=== PATIENT | male | born 1935 | race Caucasian/White ===

== ENCOUNTER 2017-05-27 10:10 | Emergency (ER) | payer SELFPAY, BC, MEDICARE | END 2017-05-27 18:45 | disposition left against medical advice (07) | LOC: E/R 10:10 | DX: Z53.21 Procedure and treatment not carried out due to patient leaving prior to being seen by health care provider (principal) ==

== ENCOUNTER 2017-06-17 11:12 | Inpatient (IN) | payer MEDICARE, BC ==
[2017-06-17] MEDS: ALBUTEROL 0.5% (NEB) 2.5 MG/0.5 ML AMP INH (16:18)
[2017-06-17] MEDS: IPRATROPIUM (NEB) 0.5 MG/2.5 ML AMP INH (16:18)
[2017-06-17] MEDS: ACETAMINOPHEN 500 MG TAB PO (16:26)
[2017-06-17] MEDS: METHYLPREDNISOLONE 125 MG INJ IV (16:26)
[2017-06-17 16:30] LABS: ADD MAN DIFF? NO
[2017-06-17 16:34] LABS: BASOPHILS % 0.2 % (0.0-2.0); EOSINOPHILS % 0.1 % (0.0-7.0); HEMATOCRIT 36.9 % (42.0-52.0); HEMOGLOBIN 12.3 g/dl (14.0-18.0); LYMPHOCYTES # 0.7 10^3/ul (0.8-2.9); LYMPHOCYTES % 8.2 % (15.0-51.0); MEAN CORPUSCULAR HEMOGLOBIN 29.1 pg (29.0-33.0); MEAN CORPUSCULAR HGB CONC 33.3 g/dl (32.0-37.0); MEAN CORPUSCULAR VOLUME 87.2 fl (82.0-101.0); MEAN PLATELET VOLUME 12.3 fl (7.4-10.4); MONOCYTE # 0.9 10^3/ul (0.3-0.9); MONOCYTES % 10.7 % (0.0-11.0); NEUTROPHIL # 6.9 10^3/ul (1.6-7.5); NEUTROPHILS % 80.2 % (39.0-77.0); NUCLEATED RED BLOOD CELLS% 0.3 /100WBC (0.0-0.0); PLATELET COUNT 244 10^3/UL (140-415); RED BLOOD COUNT 4.23 10^6/ul (4.70-6.10)
[2017-06-17 16:34] LABS: WHITE BLOOD COUNT 8.6 10^3/ul (4.8-10.8)
[2017-06-17 16:57] LABS: INR 2.03; PROTIME 23.4 Sec (11.9-14.9); PT RATIO 1.8
[2017-06-17 16:58] LABS: PARTIAL THROMBOPLASTIN TIME 40.8 Sec (25.0-35.0)
[2017-06-17 17:02] LABS: ALANINE AMINOTRANSFERASE 44 IU/L (13-69); ALBUMIN 3.5 g/dl (3.3-4.9); ALBUMIN/GLOBULIN RATIO 1.09; ALKALINE PHOSPHATASE 70 IU/L (42-121); ANION GAP 18 (8-16); ASPARTATE AMINO TRANSFERASE 38 IU/L (15-46); BILIRUBIN,INDIRECT 0.5 mg/dl (0-1.1); BILIRUBIN,TOTAL 0.5 mg/dl (0.2-1.3); BLOOD UREA NITROGEN 29 mg/dl (7-20); CALCIUM 8.7 mg/dl (8.4-10.2); CARBON DIOXIDE 22 mmol/L (21-31); CHLORIDE 106 mmol/L (97-110); CREATINE KINASE 130 IU/L (23-200); CREATININE 1.21 mg/dl (0.61-1.24); GLUCOSE 110 mg/dl (70-220); POTASSIUM 4.3 mmol/L (3.5-5.1); SODIUM 142 mmol/L (135-144); TOTAL PROTEIN 6.7 g/dl (6.1-8.1)
[2017-06-17 17:13] LABS: B-TYPE NATRIURETIC PEPTIDE 3300 PG/ML (0-450); CK INDEX 1.6; TROPONIN-I 0.013 ng/ml (0.00-0.12)
[2017-06-17 17:14] LABS: CK-MB 2.11 ng/ml (0.0-2.4)
[2017-06-17] MEDS ORDERED: DOXYCYCLINE 100 MG in DEXTROSE 5% 250 ML IV (17:46)
[2017-06-17] MEDS ORDERED: ACETAMINOPHEN 325 MG TAB PO ×2 (18:00→20:00)
[2017-06-17] MEDS ORDERED: ONDANSETRON 4 MG INJ IV (18:00)
[2017-06-17] MEDS: CEFTRIAXONE 1 GM/50 ML (PMX) 50 ML IVPB (18:14)
[2017-06-17] MEDS: DOXYCYCLINE 100 MG in SOD CHLORIDE 0.9% 250 ML IV (19:55)
[2017-06-17] MEDS ORDERED: NACL 0.9% 3 ML SYG IV (20:00)
[2017-06-17] MEDS ORDERED: ALBUTEROL/IPRATROPIUM (NEB) 3 ML AMP HHN (20:30)
[2017-06-17] MEDS: ATORVASTATIN 40 MG TAB PO (23:39)
[2017-06-17] MEDS: METOPROLOL 50 MG TAB PO (23:40)
[2017-06-18] MEDS: SALMETEROL/FLUTICASONE 250/50 INHA INH ×3 (00:13→23:05)
[2017-06-18] MEDS: MIRTAZAPINE 15 MG TAB PO ×2 (00:13→21:36)
[2017-06-18] MEDS: RIVAROXABAN 20 MG TABLET PO (00:14)
[2017-06-18] MEDS: LEVOTHYROXINE 100 MCG TAB PO (06:50)
[2017-06-18] MEDS ORDERED: PENDING SANTYL ORDER FOR WOUND CARE XX (08:00)
[2017-06-18] MEDS: LAMOTRIGINE 25 MG PO (09:00)
[2017-06-18] MEDS: METHYLPREDNISOLONE 40 MG INJ IV ×3 (09:29→21:37)
[2017-06-18] MEDS: CEFTRIAXONE 1 GM/50 ML (PMX) 50 ML IVPB (09:31)
[2017-06-18] MEDS: METOPROLOL 50 MG TAB PO ×2 (09:32→21:37)
[2017-06-18] MEDS: AMLODIPINE 2.5 MG TAB PO (09:33)
[2017-06-18] MEDS: VALSARTAN 160 MG TAB PO (09:33)
[2017-06-18] MEDS: VENLAFAXINE (XR) 37.5 MG CAP PO (09:41)
[2017-06-18] MEDS: AZITHROMYCIN 250 MG TAB PO (09:42)
[2017-06-18] MEDS: FUROSEMIDE 20 MG TAB PO (09:42)
[2017-06-18] MEDS: ALBUTEROL/IPRATROPIUM (NEB) 3 ML AMP HHN ×4 (10:05→21:02)
[2017-06-18] MEDS: LAMOTRIGINE 25 MG TAB PO ×2 (13:26→21:36)
[2017-06-18 14:59] LABS: ADD MAN DIFF? NO
[2017-06-18 15:05] LABS: WHITE BLOOD COUNT 9.2 10^3/ul (4.8-10.8)
[2017-06-18 15:05] LABS: BASOPHILS % 0.1 % (0.0-2.0); HEMATOCRIT 37.5 % (42.0-52.0); HEMOGLOBIN 12.3 g/dl (14.0-18.0); LYMPHOCYTES # 0.7 10^3/ul (0.8-2.9); LYMPHOCYTES % 7.7 % (15.0-51.0); MEAN CORPUSCULAR HEMOGLOBIN 28.4 pg (29.0-33.0); MEAN CORPUSCULAR HGB CONC 32.8 g/dl (32.0-37.0); MEAN CORPUSCULAR VOLUME 86.6 fl (82.0-101.0); MEAN PLATELET VOLUME 12.2 fl (7.4-10.4); MONOCYTE # 0.4 10^3/ul (0.3-0.9); MONOCYTES % 3.8 % (0.0-11.0); NEUTROPHIL # 8.1 10^3/ul (1.6-7.5); NUCLEATED RED BLOOD CELLS% 0.2 /100WBC (0.0-0.0); PLATELET COUNT 260 10^3/UL (140-415); RED BLOOD COUNT 4.33 10^6/ul (4.70-6.10)
[2017-06-18 17:59] LABS: ADD UMIC YES; UR ASCORBIC ACID 40 mg/dL (NEGATIVE); UR BILIRUBIN (Dip) NEGATIVE (NEGATIVE); UR BLOOD (Dip) 3+ mg/dL (NEGATIVE); UR CLARITY CLOUDY (CLEAR); UR COLOR YELLOW (YELLOW); UR GLUCOSE (Dip) NEGATIVE (NEGATIVE); UR KETONES (Dip) NEGATIVE (NEGATIVE); UR LEUKOCYTE ESTERASE (Dip) NEGATIVE Leu/ul (NEGATIVE); UR NITRITE (Dip) NEGATIVE (NEGATIVE); UR RBC > 182 /HPF (0-5); UR SPECIFIC GRAVITY (Dip) 1.015 (1.003-1.030); UR TOTAL PROTEIN (Dip) NEGATIVE (NEGATIVE); UR UROBILINOGEN (Dip) NEGATIVE (NEGATIVE); UR WBC 111 /HPF (0-5)
[2017-06-18] MEDS: ATORVASTATIN 40 MG TAB PO (21:35)
[2017-06-19] MEDS: ALBUTEROL/IPRATROPIUM (NEB) 3 ML AMP HHN ×6 (01:00→21:22)
[2017-06-19] MEDS: LEVOTHYROXINE 100 MCG TAB PO (06:33)
[2017-06-19] MEDS: METHYLPREDNISOLONE 40 MG INJ IV ×3 (06:33→21:09)
[2017-06-19 09:06] LABS: ADD MAN DIFF? NO
[2017-06-19 09:12] LABS: BASOPHILS % 0.1 % (0.0-2.0); HEMATOCRIT 38.8 % (42.0-52.0); HEMOGLOBIN 12.6 g/dl (14.0-18.0); LYMPHOCYTES # 0.9 10^3/ul (0.8-2.9); LYMPHOCYTES % 6.4 % (15.0-51.0); MEAN CORPUSCULAR HEMOGLOBIN 28.4 pg (29.0-33.0); MEAN CORPUSCULAR HGB CONC 32.5 g/dl (32.0-37.0); MEAN CORPUSCULAR VOLUME 87.6 fl (82.0-101.0); MEAN PLATELET VOLUME 12.5 fl (7.4-10.4); MONOCYTE # 0.6 10^3/ul (0.3-0.9); MONOCYTES % 4.8 % (0.0-11.0); NEUTROPHIL # 11.8 10^3/ul (1.6-7.5); NUCLEATED RED BLOOD CELLS% 0.1 /100WBC (0.0-0.0); PLATELET COUNT 272 10^3/UL (140-415); RED BLOOD COUNT 4.43 10^6/ul (4.70-6.10); RED CELL DISTRIBUTION WIDTH 16.1 % (11.5-14.5)
[2017-06-19 09:12] LABS: WHITE BLOOD COUNT 13.4 10^3/ul (4.8-10.8)
[2017-06-19] MEDS: SALMETEROL/FLUTICASONE 250/50 INHA INH ×2 (09:30→21:08)
[2017-06-19] MEDS: LAMOTRIGINE 25 MG TAB PO ×2 (09:31→21:08)
[2017-06-19] MEDS: METOPROLOL 50 MG TAB PO ×2 (09:31→21:09)
[2017-06-19] MEDS: AZITHROMYCIN 250 MG TAB PO (09:32)
[2017-06-19] MEDS: FUROSEMIDE 20 MG TAB PO (09:32)
[2017-06-19] MEDS: VALSARTAN 160 MG TAB PO (09:32)
[2017-06-19] MEDS: AMLODIPINE 2.5 MG TAB PO (09:32)
[2017-06-19 09:38] LABS: ALANINE AMINOTRANSFERASE 37 IU/L (13-69); ALBUMIN 3.8 g/dl (3.3-4.9); ALBUMIN/GLOBULIN RATIO 1.18; ALKALINE PHOSPHATASE 73 IU/L (42-121); ANION GAP 17 (8-16); ASPARTATE AMINO TRANSFERASE 41 IU/L (15-46); BILIRUBIN,INDIRECT 0.2 mg/dl (0-1.1); BILIRUBIN,TOTAL 0.2 mg/dl (0.2-1.3); BLOOD UREA NITROGEN 31 mg/dl (7-20); CALCIUM 9.4 mg/dl (8.4-10.2); CARBON DIOXIDE 27 mmol/L (21-31); CHLORIDE 107 mmol/L (97-110); CREATININE 1.12 mg/dl (0.61-1.24); GLUCOSE 124 mg/dl (70-220); MAGNESIUM 2.2 mg/dl (1.7-2.5); POTASSIUM 4.7 mmol/L (3.5-5.1); SODIUM 146 mmol/L (135-144)
[2017-06-19] MEDS: CEFTRIAXONE 1 GM/50 ML (PMX) 50 ML IVPB (09:40)
[2017-06-19] MEDS: RIVAROXABAN 15 MG TABLET PO (10:00)
[2017-06-19] MEDS: VENLAFAXINE (XR) 37.5 MG CAP PO (13:15)
[2017-06-19] MEDS: COLLAGENASE 30 GM TUBE TOP (13:16)
[2017-06-19 17:04] LABS: PROSTATE SPECIFIC ANTIGEN 6.1 ng/ml (0.0-4.0)
[2017-06-19] MEDS: ATORVASTATIN 40 MG TAB PO (21:08)
[2017-06-19] MEDS: MIRTAZAPINE 15 MG TAB PO (21:08)
[2017-06-20] MEDS: ALBUTEROL/IPRATROPIUM (NEB) 3 ML AMP HHN ×6 (00:59→20:08)
[2017-06-20] MEDS: LEVOTHYROXINE 100 MCG TAB PO (06:30)
[2017-06-20] MEDS: METHYLPREDNISOLONE 40 MG INJ IV ×2 (06:30→21:42)
[2017-06-20 08:57] LABS: ADD MAN DIFF? NO
[2017-06-20 08:58] LABS: WHITE BLOOD COUNT 14.9 10^3/ul (4.8-10.8)
[2017-06-20 08:58] LABS: BASOPHILS % 0.1 % (0.0-2.0); HEMATOCRIT 37.1 % (42.0-52.0); HEMOGLOBIN 12.3 g/dl (14.0-18.0); LYMPHOCYTES # 1.1 10^3/ul (0.8-2.9); LYMPHOCYTES % 7.6 % (15.0-51.0); MEAN CORPUSCULAR HEMOGLOBIN 28.9 pg (29.0-33.0); MEAN CORPUSCULAR HGB CONC 33.2 g/dl (32.0-37.0); MEAN CORPUSCULAR VOLUME 87.3 fl (82.0-101.0); MEAN PLATELET VOLUME 11.8 fl (7.4-10.4); MONOCYTE # 0.8 10^3/ul (0.3-0.9); MONOCYTES % 5.2 % (0.0-11.0); NEUTROPHIL # 12.8 10^3/ul (1.6-7.5); NEUTROPHILS % 86.1 % (39.0-77.0); NUCLEATED RED BLOOD CELLS% 0.2 /100WBC (0.0-0.0); PLATELET COUNT 283 10^3/UL (140-415); POSITIVE DIFF @See below; RED BLOOD COUNT 4.25 10^6/ul (4.70-6.10); RED CELL DISTRIBUTION WIDTH 16.1 % (11.5-14.5)
[2017-06-20 09:33] LABS: INR 1.44; PROTIME 17.8 Sec (11.9-14.9); PT RATIO 1.4
[2017-06-20 09:36] LABS: ALANINE AMINOTRANSFERASE 57 IU/L (13-69); ALBUMIN 3.6 g/dl (3.3-4.9); ALBUMIN/GLOBULIN RATIO 1.05; ALKALINE PHOSPHATASE 83 IU/L (42-121); ANION GAP 15 (8-16); ASPARTATE AMINO TRANSFERASE 54 IU/L (15-46); BILIRUBIN,INDIRECT 0.3 mg/dl (0-1.1); BILIRUBIN,TOTAL 0.3 mg/dl (0.2-1.3); BLOOD UREA NITROGEN 36 mg/dl (7-20); CALCIUM 9.5 mg/dl (8.4-10.2); CARBON DIOXIDE 28 mmol/L (21-31); CHLORIDE 107 mmol/L (97-110); CREATININE 1.19 mg/dl (0.61-1.24); GLUCOSE 114 mg/dl (70-220); POTASSIUM 4.1 mmol/L (3.5-5.1); SODIUM 146 mmol/L (135-144)
[2017-06-20] MEDS: CEFTRIAXONE 1 GM/50 ML (PMX) 50 ML IVPB (09:42)
[2017-06-20] MEDS: SALMETEROL/FLUTICASONE 250/50 INHA INH ×2 (09:42→20:18)
[2017-06-20] MEDS: VALSARTAN 160 MG TAB PO (09:43)
[2017-06-20] MEDS: VENLAFAXINE (XR) 37.5 MG CAP PO (09:43)
[2017-06-20] MEDS: AZITHROMYCIN 250 MG TAB PO (09:43)
[2017-06-20] MEDS: METOPROLOL 50 MG TAB PO ×2 (09:43→20:19)
[2017-06-20] MEDS: FUROSEMIDE 20 MG TAB PO (09:43)
[2017-06-20] MEDS: AMLODIPINE 2.5 MG TAB PO (09:44)
[2017-06-20] MEDS: LAMOTRIGINE 25 MG TAB PO ×2 (09:44→20:18)
[2017-06-20] MEDS: COLLAGENASE 30 GM TUBE TOP (09:47)
[2017-06-20 12:57] LABS: ADD UMIC YES; UR ASCORBIC ACID NEGATIVE (NEGATIVE); UR BILIRUBIN (Dip) NEGATIVE (NEGATIVE); UR BLOOD (Dip) 2+ mg/dL (NEGATIVE); UR CLARITY CLEAR (CLEAR); UR COLOR YELLOW (YELLOW); UR GLUCOSE (Dip) NEGATIVE (NEGATIVE); UR KETONES (Dip) NEGATIVE (NEGATIVE); UR LEUKOCYTE ESTERASE (Dip) NEGATIVE Leu/ul (NEGATIVE); UR NITRITE (Dip) NEGATIVE (NEGATIVE); UR RBC 85 /HPF (0-5); UR SPECIFIC GRAVITY (Dip) 1.018 (1.003-1.030); UR TOTAL PROTEIN (Dip) NEGATIVE (NEGATIVE); UR UROBILINOGEN (Dip) NEGATIVE (NEGATIVE); UR WBC 2 /HPF (0-5)
[2017-06-20] MEDS: MIRTAZAPINE 15 MG TAB PO (20:18)
[2017-06-20] MEDS: ATORVASTATIN 40 MG TAB PO (20:18)
[2017-06-21] MEDS: ALBUTEROL/IPRATROPIUM (NEB) 3 ML AMP HHN ×6 (00:34→20:17)
[2017-06-21] MEDS: LEVOTHYROXINE 100 MCG TAB PO (05:56)
[2017-06-21 08:28] LABS: ADD MAN DIFF? NO
[2017-06-21 08:33] LABS: WHITE BLOOD COUNT 13.5 10^3/ul (4.8-10.8)
[2017-06-21 08:33] LABS: BASOPHILS % 0.1 % (0.0-2.0); HEMATOCRIT 37.2 % (42.0-52.0); HEMOGLOBIN 12.7 g/dl (14.0-18.0); LYMPHOCYTES # 1.1 10^3/ul (0.8-2.9); LYMPHOCYTES % 7.9 % (15.0-51.0); MEAN CORPUSCULAR HGB CONC 34.1 g/dl (32.0-37.0); MEAN CORPUSCULAR VOLUME 84.9 fl (82.0-101.0); MEAN PLATELET VOLUME 11.6 fl (7.4-10.4); MONOCYTE # 0.9 10^3/ul (0.3-0.9); MONOCYTES % 6.7 % (0.0-11.0); NEUTROPHIL # 11.2 10^3/ul (1.6-7.5); NEUTROPHILS % 83.1 % (39.0-77.0); PLATELET COUNT 293 10^3/UL (140-415); RED BLOOD COUNT 4.38 10^6/ul (4.70-6.10); RED CELL DISTRIBUTION WIDTH 15.7 % (11.5-14.5)
[2017-06-21 08:51] LABS: ANION GAP 15 (8-16); BLOOD UREA NITROGEN 35 mg/dl (7-20); CALCIUM 9.3 mg/dl (8.4-10.2); CARBON DIOXIDE 28 mmol/L (21-31); CHLORIDE 106 mmol/L (97-110); CREATININE 1.04 mg/dl (0.61-1.24); GLUCOSE 119 mg/dl (70-220); POTASSIUM 4.3 mmol/L (3.5-5.1); SODIUM 145 mmol/L (135-144)
[2017-06-21] MEDS: SALMETEROL/FLUTICASONE 250/50 INHA INH ×2 (09:37→21:07)
[2017-06-21] MEDS: METHYLPREDNISOLONE 40 MG INJ IV (09:37)
[2017-06-21] MEDS: VENLAFAXINE (XR) 37.5 MG CAP PO (09:38)
[2017-06-21] MEDS: AMLODIPINE 2.5 MG TAB PO ×2 (09:38→12:10)
[2017-06-21] MEDS: METOPROLOL 50 MG TAB PO ×2 (09:38→21:08)
[2017-06-21] MEDS: LAMOTRIGINE 25 MG TAB PO ×2 (09:39→21:08)
[2017-06-21] MEDS: FUROSEMIDE 20 MG TAB PO (09:39)
[2017-06-21] MEDS: COLLAGENASE 30 GM TUBE TOP (09:39)
[2017-06-21] MEDS: AZITHROMYCIN 250 MG TAB PO (09:39)
[2017-06-21] MEDS: VALSARTAN 160 MG TAB PO (09:39)
[2017-06-21] MEDS: CEFTRIAXONE 1 GM/50 ML (PMX) 50 ML IVPB (09:40)
[2017-06-21] MEDS: MIRTAZAPINE 15 MG TAB PO (21:07)
[2017-06-21] MEDS: ATORVASTATIN 40 MG TAB PO (21:08)
[2017-06-22] MEDS: ALBUTEROL/IPRATROPIUM (NEB) 3 ML AMP HHN ×6 (00:21→20:38)
[2017-06-22] MEDS: LEVOTHYROXINE 100 MCG TAB PO (05:58)
[2017-06-22] MEDS: SALMETEROL/FLUTICASONE 250/50 INHA INH ×2 (08:07→22:45)
[2017-06-22] MEDS: VALSARTAN 160 MG TAB PO (08:09)
[2017-06-22] MEDS: METHYLPREDNISOLONE 40 MG INJ IV (08:10)
[2017-06-22] MEDS: AMLODIPINE 5 MG TAB PO ×2 (08:11→10:30)
[2017-06-22] MEDS: METOPROLOL 50 MG TAB PO ×2 (08:12→22:44)
[2017-06-22] MEDS: LAMOTRIGINE 25 MG TAB PO ×2 (08:12→22:45)
[2017-06-22] MEDS: FUROSEMIDE 20 MG TAB PO (08:12)
[2017-06-22] MEDS: VENLAFAXINE (XR) 37.5 MG CAP PO (08:12)
[2017-06-22] MEDS: COLLAGENASE 30 GM TUBE TOP (08:12)
[2017-06-22] MEDS ORDERED: SUCCINYLCHOLINE CHLORIDE 100 MG/5 ML SYG IV (18:40)
[2017-06-22] MEDS ORDERED: ROCURONIUM 50 MG INJ (18:40)
[2017-06-22] MEDS ORDERED: GLYCOPYRROLATE 0.4 MG INJ ×3 (18:40→19:14)
[2017-06-22] MEDS ORDERED: NEOSTIGMINE 3 MG/3 ML SYRINGE ×2 (18:40→19:14)
[2017-06-22] MEDS ORDERED: PROPOFOL 20 ML (18:40)
[2017-06-22] MEDS ORDERED: LIDOCAINE 2% (SDV) 5 ML INJ (18:40)
[2017-06-22] MEDS ORDERED: OXYCODONE/ACETAMINOPHEN (5/325) TAB PO ×2 (19:00)
[2017-06-22] MEDS ORDERED: MEPERIDINE 25 MG INJ IV (19:00)
[2017-06-22] MEDS ORDERED: ONDANSETRON 4 MG INJ IV (19:00)
[2017-06-22] MEDS ORDERED: hydrALAzine 20 MG INJ IV (19:00)
[2017-06-22] MEDS ORDERED: CEFAZOLIN 1 GM INJ (19:00)
[2017-06-22] MEDS ORDERED: DIPHENHYDRAMINE 50 MG INJ IV (19:00)
[2017-06-22] MEDS ORDERED: MIDAZOLAM 1 MG/ML 2 ML INJ IV (19:00)
[2017-06-22] MEDS ORDERED: LABETALOL HCL 20MG INJ IV (19:00)
[2017-06-22] MEDS ORDERED: EPHEDrine SULFATE 50 MG/5 ML SYG IV (19:00)
[2017-06-22] MEDS ORDERED: METOCLOPRAMIDE 10 MG INJ IV (19:00)
[2017-06-22] MEDS ORDERED: FENTAnyl 50 MCG/ML VIAL IV ×2 (19:00)
[2017-06-22] MEDS ORDERED: EPHEDrine SULFATE 50 MG/5 ML SYG (19:35)
[2017-06-22] MEDS: FENTAnyl 50 MCG/ML VIAL IV (20:28)
[2017-06-22] MEDS ORDERED: AMLODIPINE 5 MG TAB PO (21:00)
[2017-06-22] MEDS: ATORVASTATIN 40 MG TAB PO (22:43)
[2017-06-22] MEDS: MIRTAZAPINE 15 MG TAB PO (22:45)
[2017-06-23] MEDS: ALBUTEROL/IPRATROPIUM (NEB) 3 ML AMP HHN ×6 (01:00→20:19)
[2017-06-23] MEDS: LEVOTHYROXINE 100 MCG TAB PO (06:15)
[2017-06-23] MEDS: LAMOTRIGINE 25 MG TAB PO ×2 (08:03→21:06)
[2017-06-23] MEDS: SALMETEROL/FLUTICASONE 250/50 INHA INH ×2 (08:03→21:05)
[2017-06-23] MEDS: AMLODIPINE 10 MG TAB PO (08:04)
[2017-06-23] MEDS: FUROSEMIDE 20 MG TAB PO (08:04)
[2017-06-23] MEDS: COLLAGENASE 30 GM TUBE TOP (08:04)
[2017-06-23] MEDS: VALSARTAN 160 MG TAB PO ×2 (08:04→09:41)
[2017-06-23] MEDS: METOPROLOL 50 MG TAB PO ×2 (08:04→21:06)
[2017-06-23] MEDS: VENLAFAXINE (XR) 37.5 MG CAP PO (08:04)
[2017-06-23] MEDS: METHYLPREDNISOLONE 40 MG INJ IV (09:42)
[2017-06-23] MEDS: ATORVASTATIN 40 MG TAB PO (21:05)
[2017-06-23] MEDS: MIRTAZAPINE 15 MG TAB PO (21:05)
[2017-06-24] MEDS: ALBUTEROL/IPRATROPIUM (NEB) 3 ML AMP HHN ×4 (01:00→13:00)
[2017-06-24] MEDS: LEVOTHYROXINE 100 MCG TAB PO (06:21)
[2017-06-24 08:43] LABS: ADD MAN DIFF? NO
[2017-06-24] MEDS: METOPROLOL 50 MG TAB PO (08:49)
[2017-06-24] MEDS: SALMETEROL/FLUTICASONE 250/50 INHA INH (08:49)
[2017-06-24] MEDS: VENLAFAXINE (XR) 37.5 MG CAP PO (08:49)
[2017-06-24 08:50] LABS: BASOPHILS % 0.2 % (0.0-2.0); EOSINOPHILS # 0.1 10^3/ul (0.0-0.5); EOSINOPHILS % 0.7 % (0.0-7.0); HEMATOCRIT 38.4 % (42.0-52.0); HEMOGLOBIN 12.8 g/dl (14.0-18.0); LYMPHOCYTES # 1.3 10^3/ul (0.8-2.9); LYMPHOCYTES % 10.4 % (15.0-51.0); MEAN CORPUSCULAR HEMOGLOBIN 28.3 pg (29.0-33.0); MEAN CORPUSCULAR HGB CONC 33.3 g/dl (32.0-37.0); MEAN PLATELET VOLUME 11.5 fl (7.4-10.4); MONOCYTE # 1.1 10^3/ul (0.3-0.9); MONOCYTES % 8.8 % (0.0-11.0); NEUTROPHIL # 9.3 10^3/ul (1.6-7.5); NEUTROPHILS % 76.7 % (39.0-77.0); PLATELET COUNT 311 10^3/UL (140-415); RED BLOOD COUNT 4.52 10^6/ul (4.70-6.10); RED CELL DISTRIBUTION WIDTH 15.4 % (11.5-14.5)
[2017-06-24 08:50] LABS: WHITE BLOOD COUNT 12.1 10^3/ul (4.8-10.8)
[2017-06-24] MEDS: COLLAGENASE 30 GM TUBE TOP (08:50)
[2017-06-24] MEDS: AMLODIPINE 10 MG TAB PO (08:50)
[2017-06-24] MEDS: LAMOTRIGINE 25 MG TAB PO (08:50)
[2017-06-24] MEDS: FUROSEMIDE 20 MG TAB PO (08:50)
[2017-06-24] MEDS: VALSARTAN 160 MG TAB PO (08:59)
[2017-06-24 09:10] LABS: ALANINE AMINOTRANSFERASE 71 IU/L (13-69); ALBUMIN 3.5 g/dl (3.3-4.9); ALBUMIN/GLOBULIN RATIO 1.25; ALKALINE PHOSPHATASE 70 IU/L (42-121); ANION GAP 13 (8-16); ASPARTATE AMINO TRANSFERASE 28 IU/L (15-46); BILIRUBIN,INDIRECT 0.5 mg/dl (0-1.1); BILIRUBIN,TOTAL 0.5 mg/dl (0.2-1.3); BLOOD UREA NITROGEN 27 mg/dl (7-20); CALCIUM 9.1 mg/dl (8.4-10.2); CARBON DIOXIDE 30 mmol/L (21-31); CHLORIDE 102 mmol/L (97-110); CREATININE 1.03 mg/dl (0.61-1.24); GLUCOSE 98 mg/dl (70-220); MAGNESIUM 2.3 mg/dl (1.7-2.5); PHOSPHORUS 3.3 mg/dl (2.5-4.9); POTASSIUM 3.8 mmol/L (3.5-5.1); SODIUM 141 mmol/L (135-144); TOTAL PROTEIN 6.3 g/dl (6.1-8.1)
== END 2017-06-24 13:33 | DRG 190 ==
LOC: MS4 22:44 → E/R 11:12 → MS4 17:46
PROC: 0T9B80Z Drainage of Bladder with Drainage Device, Via Natural or Artificial Opening Endoscopic (ICD-10-PCS; principal; 2017-06-22 18:41)
DX: J44.1 Chronic obstructive pulmonary disease with (acute) exacerbation (principal); L89.323 Pressure ulcer of left buttock, stage 3; L89.313 Pressure ulcer of right buttock, stage 3; J45.901 Unspecified asthma with (acute) exacerbation; N13.8 Other obstructive and reflux uropathy; J98.11 Atelectasis; N40.1 Benign prostatic hyperplasia with lower urinary tract symptoms; N32.89 Other specified disorders of bladder; I48.2 Chronic atrial fibrillation; R31.0 Gross hematuria; E03.9 Hypothyroidism, unspecified; E78.5 Hyperlipidemia, unspecified; F32.9 Major depressive disorder, single episode, unspecified; I25.10 Atherosclerotic heart disease of native coronary artery without angina pectoris; I10 Essential (primary) hypertension; R55 Syncope and collapse; I25.2 Old myocardial infarction; Z87.891 Personal history of nicotine dependence; Z95.5 Presence of coronary angioplasty implant and graft; Z79.02 Long term (current) use of antithrombotics/antiplatelets
CPT/HCPCS: 71045; 74176; 80048; 80053; 81001; 82550; 82553; 83735; 83880; 84100; 84153; 84154; 84484; 85025; 85610; 85730; 87040; 87081; 87086; 88104; 93005; 94640; 94644; 96374; 96375; 97110; 97116; 97161; 97530; 99285-25

== ENCOUNTER 2017-06-24 13:35 | Inpatient (IN) | payer MEDICARE, BC ==
[2017-06-24] MEDS ORDERED: PENDING SANTYL ORDER FOR WOUND CARE XX (14:30)
[2017-06-24] MEDS ORDERED: ALBUTEROL/IPRATROPIUM (NEB) 3 ML AMP HHN ×2 (14:53→15:30)
[2017-06-24] MEDS ORDERED: NACL 0.9% 3 ML SYG IV (14:53)
[2017-06-24] MEDS ORDERED: ACETAMINOPHEN 325 MG TAB PO (14:53)
[2017-06-24] MEDS ORDERED: VALSARTAN 160 MG TAB PO (14:53)
[2017-06-24] MEDS ORDERED: LACTULOSE 30ML CUP PO (15:08)
[2017-06-24] MEDS ORDERED: BISACODYL 10 MG SUPP PR (15:30)
[2017-06-24 18:15] LABS: ADD UMIC YES; UR ASCORBIC ACID NEGATIVE (NEGATIVE); UR BILIRUBIN (Dip) NEGATIVE (NEGATIVE); UR BLOOD (Dip) 3+ mg/dL (NEGATIVE); UR CLARITY CLOUDY (CLEAR); UR COLOR AMBER (YELLOW); UR GLUCOSE (Dip) 1+ mg/dL (NEGATIVE); UR KETONES (Dip) NEGATIVE (NEGATIVE); UR LEUKOCYTE ESTERASE (Dip) 2+ Leu/ul (NEGATIVE); UR MUCUS MANY /HPF (NONE SEEN); UR NITRITE (Dip) NEGATIVE (NEGATIVE); UR RBC > 182 /HPF (0-5); UR SPECIFIC GRAVITY (Dip) 1.017 (1.003-1.030); UR SQUAMOUS EPITHELIAL CELL FEW /HPF (FEW); UR TOTAL PROTEIN (Dip) 2+ mg/dl (NEGATIVE); UR UROBILINOGEN (Dip) NEGATIVE (NEGATIVE); UR WBC 71 /HPF (0-5)
[2017-06-24] MEDS: SALMETEROL/FLUTICASONE 250/50 INHA INH (21:10)
[2017-06-24] MEDS: DOCUSATE SODIUM 100 MG CAP PO (21:11)
[2017-06-24] MEDS: SENNA TAB PO (21:11)
[2017-06-24] MEDS: ATORVASTATIN 40 MG TAB PO (21:11)
[2017-06-24] MEDS: LAMOTRIGINE 25 MG TAB PO (21:12)
[2017-06-24] MEDS: MIRTAZAPINE 15 MG TAB PO (21:13)
[2017-06-24] MEDS: METOPROLOL 50 MG TAB PO (21:14)
[2017-06-25] MEDS: LEVOTHYROXINE 100 MCG TAB PO (06:40)
[2017-06-25] MEDS: COLLAGENASE 30 GM TUBE TOP (09:00)
[2017-06-25] MEDS: MULTIVITAMINS THERAPEUTIC TAB PO (09:00)
[2017-06-25 09:34] LABS: ADD MAN DIFF? NO
[2017-06-25 09:39] LABS: BASOPHIL # 0.1 10^3/ul (0.0-0.1); BASOPHILS % 0.5 % (0.0-2.0); EOSINOPHILS # 0.2 10^3/ul (0.0-0.5); EOSINOPHILS % 1.3 % (0.0-7.0); HEMATOCRIT 44.5 % (42.0-52.0); HEMOGLOBIN 14.9 g/dl (14.0-18.0); LYMPHOCYTES # 2.3 10^3/ul (0.8-2.9); LYMPHOCYTES % 15.3 % (15.0-51.0); MEAN CORPUSCULAR HEMOGLOBIN 29.3 pg (29.0-33.0); MEAN CORPUSCULAR HGB CONC 33.5 g/dl (32.0-37.0); MEAN CORPUSCULAR VOLUME 87.4 fl (82.0-101.0); MEAN PLATELET VOLUME 11.4 fl (7.4-10.4); MONOCYTE # 1.1 10^3/ul (0.3-0.9); MONOCYTES % 7.7 % (0.0-11.0); NEUTROPHIL # 10.5 10^3/ul (1.6-7.5); NEUTROPHILS % 70.5 % (39.0-77.0); PLATELET COUNT 356 10^3/UL (140-415); RED BLOOD COUNT 5.09 10^6/ul (4.70-6.10); RED CELL DISTRIBUTION WIDTH 15.6 % (11.5-14.5)
[2017-06-25 09:39] LABS: WHITE BLOOD COUNT 14.9 10^3/ul (4.8-10.8)
[2017-06-25 09:59] LABS: ALBUMIN 3.8 g/dl (3.3-4.9); ALBUMIN/GLOBULIN RATIO 1.15; ALKALINE PHOSPHATASE 80 IU/L (42-121); ANION GAP 17 (8-16); ASPARTATE AMINO TRANSFERASE 48 IU/L (15-46); BILIRUBIN,INDIRECT 0.6 mg/dl (0-1.1); BILIRUBIN,TOTAL 0.6 mg/dl (0.2-1.3); BLOOD UREA NITROGEN 39 mg/dl (7-20); CALCIUM 9.2 mg/dl (8.4-10.2); CARBON DIOXIDE 30 mmol/L (21-31); CHLORIDE 101 mmol/L (97-110); CREATININE 1.46 mg/dl (0.61-1.24); GLUCOSE 116 mg/dl (70-220); POTASSIUM 4.7 mmol/L (3.5-5.1); SODIUM 143 mmol/L (135-144); TOTAL PROTEIN 7.1 g/dl (6.1-8.1)
[2017-06-25] MEDS: DOCUSATE SODIUM 100 MG CAP PO ×2 (10:10→21:18)
[2017-06-25] MEDS: ZINC SULFATE 220 MG CAP PO (10:10)
[2017-06-25] MEDS: SALMETEROL/FLUTICASONE 250/50 INHA INH ×2 (10:10→21:18)
[2017-06-25] MEDS: ASCORBIC ACID 500 MG TAB PO (10:10)
[2017-06-25] MEDS: FUROSEMIDE 20 MG TAB PO (10:11)
[2017-06-25] MEDS: METOPROLOL 50 MG TAB PO ×2 (10:12→21:20)
[2017-06-25] MEDS: AMLODIPINE 5 MG TAB PO (10:13)
[2017-06-25] MEDS: VENLAFAXINE (XR) 37.5 MG CAP PO (10:13)
[2017-06-25] MEDS: LAMOTRIGINE 25 MG TAB PO ×2 (10:13→21:20)
[2017-06-25 10:17] LABS: ALANINE AMINOTRANSFERASE 90 IU/L (13-69)
[2017-06-25] MEDS: ALBUTEROL/IPRATROPIUM (NEB) 3 ML AMP HHN ×3 (13:56→20:08)
[2017-06-25] MEDS: RIVAROXABAN 15 MG TABLET PO (18:36)
[2017-06-25] MEDS: SENNA TAB PO (21:00)
[2017-06-25] MEDS: ATORVASTATIN 40 MG TAB PO (21:20)
[2017-06-25] MEDS: MIRTAZAPINE 15 MG TAB PO (21:20)
[2017-06-26] MEDS: ALBUTEROL/IPRATROPIUM (NEB) 3 ML AMP HHN ×6 (01:00→20:21)
[2017-06-26] MEDS: LEVOTHYROXINE 100 MCG TAB PO (06:44)
[2017-06-26] MEDS: VALSARTAN 160 MG TAB PO (09:00)
[2017-06-26] MEDS: SALMETEROL/FLUTICASONE 250/50 INHA INH ×2 (09:38→21:23)
[2017-06-26] MEDS: FUROSEMIDE 20 MG TAB PO (09:42)
[2017-06-26] MEDS: ASCORBIC ACID 500 MG TAB PO (09:42)
[2017-06-26] MEDS: VENLAFAXINE (XR) 37.5 MG CAP PO (09:42)
[2017-06-26] MEDS: MULTIVITAMINS THERAPEUTIC TAB PO (09:42)
[2017-06-26] MEDS: DOCUSATE SODIUM 100 MG CAP PO ×2 (09:42→21:21)
[2017-06-26] MEDS: LAMOTRIGINE 25 MG TAB PO ×2 (09:45→21:22)
[2017-06-26] MEDS: ZINC SULFATE 220 MG CAP PO (09:46)
[2017-06-26] MEDS: METOPROLOL 50 MG TAB PO ×2 (09:56→21:00)
[2017-06-26] MEDS: COLLAGENASE 30 GM TUBE TOP (09:59)
[2017-06-26] MEDS: AMLODIPINE 5 MG TAB PO (11:00)
[2017-06-26] MEDS: RIVAROXABAN 15 MG TABLET PO (17:54)
[2017-06-26] MEDS: MIRTAZAPINE 15 MG TAB PO (21:22)
[2017-06-26] MEDS: ATORVASTATIN 40 MG TAB PO (21:22)
[2017-06-26] MEDS: SENNA TAB PO (21:22)
[2017-06-27] MEDS: ALBUTEROL/IPRATROPIUM (NEB) 3 ML AMP HHN ×6 (01:00→20:26)
[2017-06-27] MEDS: LEVOTHYROXINE 100 MCG TAB PO (06:40)
[2017-06-27] MEDS: ASCORBIC ACID 500 MG TAB PO (08:17)
[2017-06-27] MEDS: SALMETEROL/FLUTICASONE 250/50 INHA INH ×2 (08:17→20:43)
[2017-06-27] MEDS: ZINC SULFATE 220 MG CAP PO (08:17)
[2017-06-27] MEDS: VENLAFAXINE (XR) 37.5 MG CAP PO (08:17)
[2017-06-27] MEDS: MULTIVITAMINS THERAPEUTIC TAB PO (08:18)
[2017-06-27] MEDS: DOCUSATE SODIUM 100 MG CAP PO ×2 (08:18→20:40)
[2017-06-27] MEDS: LAMOTRIGINE 25 MG TAB PO ×2 (08:18→20:40)
[2017-06-27] MEDS: METOPROLOL 50 MG TAB PO ×2 (08:21→20:41)
[2017-06-27] MEDS: FUROSEMIDE 20 MG TAB PO (08:21)
[2017-06-27] MEDS: VALSARTAN 160 MG TAB PO (08:22)
[2017-06-27] MEDS: COLLAGENASE 30 GM TUBE TOP (09:00)
[2017-06-27 11:00] LABS: ADD MAN DIFF? NO
[2017-06-27 11:04] LABS: WHITE BLOOD COUNT 13.9 10^3/ul (4.8-10.8)
[2017-06-27 11:04] LABS: BASOPHILS % 0.1 % (0.0-2.0); EOSINOPHILS # 0.1 10^3/ul (0.0-0.5); EOSINOPHILS % 0.6 % (0.0-7.0); HEMATOCRIT 41.5 % (42.0-52.0); HEMOGLOBIN 13.8 g/dl (14.0-18.0); LYMPHOCYTES # 1.7 10^3/ul (0.8-2.9); LYMPHOCYTES % 12.4 % (15.0-51.0); MEAN CORPUSCULAR HEMOGLOBIN 28.9 pg (29.0-33.0); MEAN CORPUSCULAR HGB CONC 33.3 g/dl (32.0-37.0); MEAN CORPUSCULAR VOLUME 86.8 fl (82.0-101.0); MONOCYTE # 1.3 10^3/ul (0.3-0.9); MONOCYTES % 9.6 % (0.0-11.0); NEUTROPHIL # 10.3 10^3/ul (1.6-7.5); NEUTROPHILS % 74.1 % (39.0-77.0); PLATELET COUNT 301 10^3/UL (140-415); RED BLOOD COUNT 4.78 10^6/ul (4.70-6.10)
[2017-06-27 11:28] LABS: ANION GAP 20 (8-16); BLOOD UREA NITROGEN 41 mg/dl (7-20); CALCIUM 9.4 mg/dl (8.4-10.2); CARBON DIOXIDE 28 mmol/L (21-31); CHLORIDE 102 mmol/L (97-110); GLUCOSE 114 mg/dl (70-220); POTASSIUM 4.5 mmol/L (3.5-5.1); SODIUM 145 mmol/L (135-144)
[2017-06-27] MEDS: RIVAROXABAN 15 MG TABLET PO (17:52)
[2017-06-27] MEDS: SENNA TAB PO (20:40)
[2017-06-27] MEDS: MIRTAZAPINE 15 MG TAB PO (20:40)
[2017-06-27] MEDS: ATORVASTATIN 40 MG TAB PO (20:40)
[2017-06-28] MEDS: ALBUTEROL/IPRATROPIUM (NEB) 3 ML AMP HHN ×6 (00:21→21:00)
[2017-06-28] MEDS: LEVOTHYROXINE 100 MCG TAB PO (06:56)
[2017-06-28] MEDS: VENLAFAXINE (XR) 37.5 MG CAP PO (08:08)
[2017-06-28] MEDS: ASCORBIC ACID 500 MG TAB PO (08:09)
[2017-06-28] MEDS: METOPROLOL 50 MG TAB PO ×2 (08:09→20:34)
[2017-06-28] MEDS: DOCUSATE SODIUM 100 MG CAP PO ×2 (08:09→20:27)
[2017-06-28] MEDS: ZINC SULFATE 220 MG CAP PO (08:09)
[2017-06-28] MEDS: MULTIVITAMINS THERAPEUTIC TAB PO (08:09)
[2017-06-28] MEDS: LAMOTRIGINE 25 MG TAB PO ×2 (08:09→20:27)
[2017-06-28] MEDS: VALSARTAN 80 MG TAB PO (08:10)
[2017-06-28] MEDS: SALMETEROL/FLUTICASONE 250/50 INHA INH ×2 (08:10→20:28)
[2017-06-28] MEDS: RIVAROXABAN 15 MG TABLET PO (17:40)
[2017-06-28] MEDS: DEXTROSE 5%-0.9% NACL 1,000 ML IV (18:10)
[2017-06-28] MEDS: MAGNESIUM HYDROXIDE 30ML CUP PO (18:21)
[2017-06-28] MEDS: MIRTAZAPINE 15 MG TAB PO (20:27)
[2017-06-28] MEDS: SENNA TAB PO (20:27)
[2017-06-28] MEDS: ATORVASTATIN 40 MG TAB PO (20:27)
[2017-06-29] MEDS: ALBUTEROL/IPRATROPIUM (NEB) 3 ML AMP HHN ×6 (01:00→21:00)
[2017-06-29] MEDS: DEXTROSE 5%-0.9% NACL 1,000 ML IV (04:02)
[2017-06-29] MEDS: LEVOTHYROXINE 100 MCG TAB PO (06:19)
[2017-06-29 07:10] LABS: ADD MAN DIFF? NO
[2017-06-29 07:16] LABS: ABNORMAL IP MESSAGE 1; BASOPHILS % 0.1 % (0.0-2.0); EOSINOPHILS # 0.1 10^3/ul (0.0-0.5); EOSINOPHILS % 0.8 % (0.0-7.0); HEMATOCRIT 40.6 % (42.0-52.0); HEMOGLOBIN 13.2 g/dl (14.0-18.0); LYMPHOCYTES % 13.3 % (15.0-51.0); MEAN CORPUSCULAR HEMOGLOBIN 28.8 pg (29.0-33.0); MEAN CORPUSCULAR HGB CONC 32.5 g/dl (32.0-37.0); MEAN CORPUSCULAR VOLUME 88.5 fl (82.0-101.0); MEAN PLATELET VOLUME 12.1 fl (7.4-10.4); MONOCYTE # 1.6 10^3/ul (0.3-0.9); MONOCYTES % 10.3 % (0.0-11.0); NEUTROPHIL # 11.2 10^3/ul (1.6-7.5); NEUTROPHILS % 74.2 % (39.0-77.0); PLATELET COUNT 261 10^3/UL (140-415); POSITIVE DIFF @See below; RED BLOOD COUNT 4.59 10^6/ul (4.70-6.10); RED CELL DISTRIBUTION WIDTH 16.4 % (11.5-14.5)
[2017-06-29 07:16] LABS: WHITE BLOOD COUNT 15.1 10^3/ul (4.8-10.8)
[2017-06-29 07:48] LABS: ALANINE AMINOTRANSFERASE 86 IU/L (13-69); ALBUMIN 3.5 g/dl (3.3-4.9); ALBUMIN/GLOBULIN RATIO 1.29; ALKALINE PHOSPHATASE 79 IU/L (42-121); ANION GAP 16 (8-16); ASPARTATE AMINO TRANSFERASE 49 IU/L (15-46); BILIRUBIN,INDIRECT 0.3 mg/dl (0-1.1); BILIRUBIN,TOTAL 0.3 mg/dl (0.2-1.3); BLOOD UREA NITROGEN 28 mg/dl (7-20); CALCIUM 8.7 mg/dl (8.4-10.2); CARBON DIOXIDE 26 mmol/L (21-31); CHLORIDE 108 mmol/L (97-110); CREATININE 1.17 mg/dl (0.61-1.24); GLUCOSE 104 mg/dl (70-220); POTASSIUM 4.2 mmol/L (3.5-5.1); SODIUM 146 mmol/L (135-144); TOTAL PROTEIN 6.2 g/dl (6.1-8.1)
[2017-06-29] MEDS: ZINC SULFATE 220 MG CAP PO (08:50)
[2017-06-29] MEDS: LAMOTRIGINE 25 MG TAB PO ×2 (08:51→20:11)
[2017-06-29] MEDS: ASCORBIC ACID 500 MG TAB PO (08:53)
[2017-06-29] MEDS: DOCUSATE SODIUM 100 MG CAP PO ×2 (08:53→20:10)
[2017-06-29] MEDS: METOPROLOL 50 MG TAB PO ×2 (08:54→21:00)
[2017-06-29] MEDS: VALSARTAN 80 MG TAB PO (08:58)
[2017-06-29] MEDS: VENLAFAXINE (XR) 37.5 MG CAP PO (08:58)
[2017-06-29] MEDS: SALMETEROL/FLUTICASONE 250/50 INHA INH ×2 (08:59→20:10)
[2017-06-29] MEDS: MULTIVITAMINS THERAPEUTIC TAB PO (09:08)
[2017-06-29] MEDS: NEOMYC/POLYMYX/BACIT 30 GM OINT TOP (13:51)
[2017-06-29] MEDS: RIVAROXABAN 15 MG TABLET PO (17:57)
[2017-06-29] MEDS: ATORVASTATIN 40 MG TAB PO (20:10)
[2017-06-29] MEDS: MIRTAZAPINE 15 MG TAB PO (20:11)
[2017-06-29] MEDS: SENNA TAB PO (20:13)
[2017-06-30] MEDS: ALBUTEROL/IPRATROPIUM (NEB) 3 ML AMP HHN ×5 (01:00→21:02)
[2017-06-30] MEDS: LEVOTHYROXINE 100 MCG TAB PO (06:24)
[2017-06-30] MEDS: DOCUSATE SODIUM 100 MG CAP PO ×2 (08:25→21:12)
[2017-06-30] MEDS: SALMETEROL/FLUTICASONE 250/50 INHA INH ×2 (08:25→21:17)
[2017-06-30] MEDS: LAMOTRIGINE 25 MG TAB PO ×2 (08:26→21:13)
[2017-06-30] MEDS: ASCORBIC ACID 500 MG TAB PO (08:26)
[2017-06-30] MEDS: VENLAFAXINE (XR) 37.5 MG CAP PO (08:26)
[2017-06-30] MEDS: ZINC SULFATE 220 MG CAP PO (08:26)
[2017-06-30] MEDS: NEOMYC/POLYMYX/BACIT 30 GM OINT TOP (09:00)
[2017-06-30] MEDS: METOPROLOL 50 MG TAB PO ×2 (09:00→21:00)
[2017-06-30] MEDS: MULTIVITAMINS THERAPEUTIC TAB PO (09:00)
[2017-06-30] MEDS ORDERED: SPECIAL NON-STANDARD MEDICATION PO (09:00)
[2017-06-30] MEDS: RIVAROXABAN 15 MG TABLET PO (17:34)
[2017-06-30] MEDS: SENNA TAB PO (21:00)
[2017-06-30] MEDS: ATORVASTATIN 40 MG TAB PO (21:12)
[2017-06-30] MEDS: MIRTAZAPINE 15 MG TAB PO (21:13)
[2017-07-01] MEDS: ALBUTEROL/IPRATROPIUM (NEB) 3 ML AMP HHN ×2 (00:53→04:47)
[2017-07-01] MEDS: LEVOTHYROXINE 100 MCG TAB PO (06:44)
[2017-07-01] MEDS: LAMOTRIGINE 25 MG TAB PO ×2 (08:21→20:45)
[2017-07-01] MEDS: ZINC SULFATE 220 MG CAP PO (08:22)
[2017-07-01] MEDS: ASCORBIC ACID 500 MG TAB PO (08:22)
[2017-07-01] MEDS: VENLAFAXINE (XR) 37.5 MG CAP PO (08:22)
[2017-07-01] MEDS: SALMETEROL/FLUTICASONE 250/50 INHA INH ×2 (08:22→20:47)
[2017-07-01] MEDS: NEOMYC/POLYMYX/BACIT 30 GM OINT TOP (08:22)
[2017-07-01] MEDS: MULTIVITAMINS THERAPEUTIC TAB PO (08:22)
[2017-07-01] MEDS: DOCUSATE SODIUM 100 MG CAP PO ×2 (08:22→20:45)
[2017-07-01] MEDS: METOPROLOL 50 MG TAB PO ×2 (08:23→20:46)
[2017-07-01] MEDS: RIVAROXABAN 15 MG TABLET PO (17:40)
[2017-07-01] MEDS: ATORVASTATIN 40 MG TAB PO (20:45)
[2017-07-01] MEDS: SENNA TAB PO (20:45)
[2017-07-01] MEDS: MIRTAZAPINE 15 MG TAB PO (20:45)
[2017-07-02] MEDS: LEVOTHYROXINE 100 MCG TAB PO (06:13)
[2017-07-02] MEDS: METOPROLOL 50 MG TAB PO ×2 (07:50→21:00)
[2017-07-02] MEDS: SALMETEROL/FLUTICASONE 250/50 INHA INH ×2 (09:05→21:45)
[2017-07-02] MEDS: ZINC SULFATE 220 MG CAP PO (09:07)
[2017-07-02] MEDS: DOCUSATE SODIUM 100 MG CAP PO ×2 (09:07→21:45)
[2017-07-02] MEDS: ASCORBIC ACID 500 MG TAB PO (09:07)
[2017-07-02] MEDS: VENLAFAXINE (XR) 37.5 MG CAP PO (09:07)
[2017-07-02] MEDS: LAMOTRIGINE 25 MG TAB PO ×2 (09:07→21:46)
[2017-07-02] MEDS: MULTIVITAMINS THERAPEUTIC TAB PO (09:08)
[2017-07-02] MEDS: NEOMYC/POLYMYX/BACIT 30 GM OINT TOP (09:13)
[2017-07-02] MEDS: RIVAROXABAN 15 MG TABLET PO (18:15)
[2017-07-02] MEDS: SENNA TAB PO (21:00)
[2017-07-02] MEDS: MIRTAZAPINE 15 MG TAB PO (21:45)
[2017-07-02] MEDS: ATORVASTATIN 40 MG TAB PO (21:46)
[2017-07-03] MEDS: LEVOTHYROXINE 100 MCG TAB PO (06:51)
[2017-07-03] MEDS: SALMETEROL/FLUTICASONE 250/50 INHA INH ×2 (10:17→20:07)
[2017-07-03] MEDS: ASCORBIC ACID 500 MG TAB PO (10:18)
[2017-07-03] MEDS: DOCUSATE SODIUM 100 MG CAP PO ×2 (10:18→20:02)
[2017-07-03] MEDS: VENLAFAXINE (XR) 37.5 MG CAP PO (10:19)
[2017-07-03] MEDS: METOPROLOL 50 MG TAB PO ×2 (10:19→20:08)
[2017-07-03] MEDS: LAMOTRIGINE 25 MG TAB PO ×2 (10:19→20:02)
[2017-07-03] MEDS: NEOMYC/POLYMYX/BACIT 30 GM OINT TOP (10:22)
[2017-07-03] MEDS: MULTIVITAMINS THERAPEUTIC TAB PO (10:24)
[2017-07-03] MEDS: ZINC SULFATE 220 MG CAP PO (10:25)
[2017-07-03] MEDS: RIVAROXABAN 15 MG TABLET PO (17:43)
[2017-07-03] MEDS: SENNA TAB PO (20:02)
[2017-07-03] MEDS: ATORVASTATIN 40 MG TAB PO (20:02)
[2017-07-03] MEDS: MIRTAZAPINE 15 MG TAB PO (20:03)
[2017-07-04] MEDS: LEVOTHYROXINE 100 MCG TAB PO (06:43)
[2017-07-04] MEDS: SALMETEROL/FLUTICASONE 250/50 INHA INH ×2 (08:20→20:09)
[2017-07-04] MEDS: NEOMYC/POLYMYX/BACIT 30 GM OINT TOP (08:20)
[2017-07-04] MEDS: METOPROLOL 50 MG TAB PO ×2 (08:21→20:10)
[2017-07-04] MEDS: DOCUSATE SODIUM 100 MG CAP PO ×2 (08:21→20:09)
[2017-07-04] MEDS: ASCORBIC ACID 500 MG TAB PO (08:21)
[2017-07-04] MEDS: ZINC SULFATE 220 MG CAP PO (08:21)
[2017-07-04] MEDS: MULTIVITAMINS THERAPEUTIC TAB PO (08:21)
[2017-07-04] MEDS: VENLAFAXINE (XR) 37.5 MG CAP PO (08:21)
[2017-07-04] MEDS: LAMOTRIGINE 25 MG TAB PO ×2 (08:23→20:10)
[2017-07-04 09:24] LABS: ADD MAN DIFF? NO
[2017-07-04 09:33] LABS: WHITE BLOOD COUNT 8.6 10^3/ul (4.8-10.8)
[2017-07-04 09:33] LABS: BASOPHILS % 0.4 % (0.0-2.0); EOSINOPHILS # 0.1 10^3/ul (0.0-0.5); EOSINOPHILS % 0.9 % (0.0-7.0); HEMATOCRIT 40.7 % (42.0-52.0); HEMOGLOBIN 13.4 g/dl (14.0-18.0); LYMPHOCYTES # 1.5 10^3/ul (0.8-2.9); LYMPHOCYTES % 17.2 % (15.0-51.0); MEAN CORPUSCULAR HEMOGLOBIN 29.3 pg (29.0-33.0); MEAN CORPUSCULAR HGB CONC 32.9 g/dl (32.0-37.0); MEAN CORPUSCULAR VOLUME 88.9 fl (82.0-101.0); MEAN PLATELET VOLUME 12.5 fl (7.4-10.4); MONOCYTE # 0.7 10^3/ul (0.3-0.9); MONOCYTES % 8.7 % (0.0-11.0); NEUTROPHIL # 6.2 10^3/ul (1.6-7.5); PLATELET COUNT 281 10^3/UL (140-415); RED BLOOD COUNT 4.58 10^6/ul (4.70-6.10); RED CELL DISTRIBUTION WIDTH 16.6 % (11.5-14.5)
[2017-07-04 09:45] LABS: ALANINE AMINOTRANSFERASE 78 IU/L (13-69); ALBUMIN 3.9 g/dl (3.3-4.9); ALBUMIN/GLOBULIN RATIO 1.18; ALKALINE PHOSPHATASE 118 IU/L (42-121); ANION GAP 15 (8-16); ASPARTATE AMINO TRANSFERASE 46 IU/L (15-46); BILIRUBIN,INDIRECT 0.5 mg/dl (0-1.1); BILIRUBIN,TOTAL 0.5 mg/dl (0.2-1.3); BLOOD UREA NITROGEN 20 mg/dl (7-20); CALCIUM 9.7 mg/dl (8.4-10.2); CARBON DIOXIDE 26 mmol/L (21-31); CHLORIDE 107 mmol/L (97-110); CREATININE 1.28 mg/dl (0.61-1.24); GLUCOSE 136 mg/dl (70-220); POTASSIUM 4.3 mmol/L (3.5-5.1); SODIUM 144 mmol/L (135-144); TOTAL PROTEIN 7.2 g/dl (6.1-8.1)
[2017-07-04] MEDS: RIVAROXABAN 15 MG TABLET PO (18:14)
[2017-07-04] MEDS: MIRTAZAPINE 15 MG TAB PO (20:09)
[2017-07-04] MEDS: ATORVASTATIN 40 MG TAB PO (20:09)
[2017-07-04] MEDS: SENNA TAB PO (20:10)
[2017-07-05] MEDS: LEVOTHYROXINE 100 MCG TAB PO (06:42)
[2017-07-05] MEDS: SALMETEROL/FLUTICASONE 250/50 INHA INH ×2 (09:05→20:55)
[2017-07-05] MEDS: DOCUSATE SODIUM 100 MG CAP PO ×2 (09:06→20:48)
[2017-07-05] MEDS: VENLAFAXINE (XR) 37.5 MG CAP PO (09:07)
[2017-07-05] MEDS: METOPROLOL 50 MG TAB PO ×2 (09:07→20:54)
[2017-07-05] MEDS: MULTIVITAMINS THERAPEUTIC TAB PO (09:07)
[2017-07-05] MEDS: LAMOTRIGINE 25 MG TAB PO ×2 (09:07→20:48)
[2017-07-05] MEDS: ASCORBIC ACID 500 MG TAB PO (09:08)
[2017-07-05] MEDS: ZINC SULFATE 220 MG CAP PO (09:08)
[2017-07-05] MEDS: NEOMYC/POLYMYX/BACIT 30 GM OINT TOP (09:08)
[2017-07-05] MEDS: RIVAROXABAN 15 MG TABLET PO (17:25)
[2017-07-05] MEDS: SENNA TAB PO (20:48)
[2017-07-05] MEDS: ATORVASTATIN 40 MG TAB PO (20:48)
[2017-07-05] MEDS: MIRTAZAPINE 15 MG TAB PO (20:48)
[2017-07-06] MEDS: LEVOTHYROXINE 100 MCG TAB PO (05:52)
[2017-07-06] MEDS: DOCUSATE SODIUM 100 MG CAP PO (09:02)
[2017-07-06] MEDS: ASCORBIC ACID 500 MG TAB PO (09:02)
[2017-07-06] MEDS: METOPROLOL 50 MG TAB PO (09:02)
[2017-07-06] MEDS: VENLAFAXINE (XR) 37.5 MG CAP PO (09:02)
[2017-07-06] MEDS: LAMOTRIGINE 25 MG TAB PO (09:03)
[2017-07-06] MEDS: NEOMYC/POLYMYX/BACIT 30 GM OINT TOP (09:03)
[2017-07-06] MEDS: MULTIVITAMINS THERAPEUTIC TAB PO (09:03)
[2017-07-06] MEDS: SALMETEROL/FLUTICASONE 250/50 INHA INH (09:03)
[2017-07-06] MEDS: ZINC SULFATE 220 MG CAP PO (09:03)
== END 2017-07-06 13:30 | disposition home health service (06) | DRG 945 ==
LOC: VRC 13:35
PROC: F07Z5ZZ Bed Mobility Treatment (ICD-10-PCS; principal; 2017-06-25)
PROC: F07Z8ZZ Transfer Training Treatment (ICD-10-PCS; 2017-06-25)
PROC: F07Z9ZZ Gait Training/Functional Ambulation Treatment (ICD-10-PCS; 2017-06-25)
PROC: F08Z2ZZ Grooming/Personal Hygiene Treatment (ICD-10-PCS; 2017-06-25)
PROC: F08Z1ZZ Dressing Techniques Treatment (ICD-10-PCS; 2017-06-25)
PROC: F08Z0ZZ Bathing/Showering Techniques Treatment (ICD-10-PCS; 2017-06-25)
DX: R53.81 Other malaise (principal); L89.153 Pressure ulcer of sacral region, stage 3; F31.32 Bipolar disorder, current episode depressed, moderate; J44.9 Chronic obstructive pulmonary disease, unspecified; R06.00 Dyspnea, unspecified; I48.2 Chronic atrial fibrillation; E03.9 Hypothyroidism, unspecified; E78.5 Hyperlipidemia, unspecified; I10 Essential (primary) hypertension; I25.10 Atherosclerotic heart disease of native coronary artery without angina pectoris; Z74.09 Other reduced mobility; I95.1 Orthostatic hypotension; L60.1 Onycholysis; N40.1 Benign prostatic hyperplasia with lower urinary tract symptoms; N28.9 Disorder of kidney and ureter, unspecified; R33.8 Other retention of urine; Z98.1 Arthrodesis status; Z95.5 Presence of coronary angioplasty implant and graft; Z87.891 Personal history of nicotine dependence
CPT/HCPCS: 71046; 80048; 80053; 81001; 85025; 87081; 87086; 93005; 94640; 94664; 97110; 97112; 97116; 97150; 97163; 97167; 97530; 97535; 97542

== ENCOUNTER 2017-09-11 10:40 | Emergency (ER) | payer MEDICARE, BC ==
[2017-09-11] MEDS: DIPHTH/TET/ACEL PERTUSS (ADULT) 0.5 ML VIAL IM* (11:08)
== END 2017-09-11 12:40 | disposition home or self-care (01) ==
LOC: FTE 10:40
DX: S61.512A Laceration without foreign body of left wrist, initial encounter (principal); S00.12XA Contusion of left eyelid and periocular area, initial encounter; S61.511A Laceration without foreign body of right wrist, initial encounter; W18.39XA Other fall on same level, initial encounter; Y92.9 Unspecified place or not applicable; Z23 Encounter for immunization
CPT/HCPCS: 70450; 72125; 90471; 90715; 99285-25

== ENCOUNTER 2018-05-26 15:06 | Inpatient (IN) | payer MEDICARE, BC ==
[2018-05-26] MEDS ORDERED: NITROGLYCERIN (SL) 0.4 MG TAB SL (17:30)
[2018-05-26] MEDS ORDERED: ONDANSETRON 4 MG INJ IV (17:30)
[2018-05-26] MEDS ORDERED: NACL 0.9% 3 ML SYG IV (17:30)
[2018-05-26] MEDS ORDERED: ACETAMINOPHEN 325 MG TAB PO (17:30)
[2018-05-26 18:11] LABS: ADD MAN DIFF? NO
[2018-05-26 18:12] LABS: BASOPHILS % 0.3 % (0.0-2.0); EOSINOPHILS # 0.1 10^3/ul (0.0-0.5); EOSINOPHILS % 1.3 % (0.0-7.0); HEMATOCRIT 39.9 % (42.0-52.0); HEMOGLOBIN 12.6 g/dl (14.0-18.0); LYMPHOCYTES # 1.2 10^3/ul (0.8-2.9); LYMPHOCYTES % 11.9 % (15.0-51.0); MEAN CORPUSCULAR HEMOGLOBIN 27.9 pg (29.0-33.0); MEAN CORPUSCULAR HGB CONC 31.6 g/dl (32.0-37.0); MEAN CORPUSCULAR VOLUME 88.3 fl (82.0-101.0); MEAN PLATELET VOLUME 11.3 fl (7.4-10.4); MONOCYTES % 9.9 % (0.0-11.0); NEUTROPHIL # 7.8 10^3/ul (1.6-7.5); NEUTROPHILS % 76.1 % (39.0-77.0); PLATELET COUNT 292 10^3/UL (140-415); RED BLOOD COUNT 4.52 10^6/ul (4.70-6.10); RED CELL DISTRIBUTION WIDTH 16.3 % (11.5-14.5)
[2018-05-26 18:12] LABS: WHITE BLOOD COUNT 10.2 10^3/ul (4.8-10.8)
[2018-05-26 18:32] LABS: ALANINE AMINOTRANSFERASE 19 IU/L (13-69); ALBUMIN 3.9 g/dl (3.3-4.9); ALBUMIN/GLOBULIN RATIO 1.21; ALKALINE PHOSPHATASE 87 IU/L (42-121); ANION GAP 9 (5-13); ASPARTATE AMINO TRANSFERASE 21 IU/L (15-46); BILIRUBIN,INDIRECT 0.6 mg/dl (0-1.1); BILIRUBIN,TOTAL 0.6 mg/dl (0.2-1.3); BLOOD UREA NITROGEN 24 mg/dl (7-20); CALCIUM 9.7 mg/dl (8.4-10.2); CARBON DIOXIDE 26 mmol/L (21-31); CHLORIDE 106 mmol/L (97-110); CREATININE 1.23 mg/dl (0.61-1.24); GLUCOSE 96 mg/dl (70-220); MAGNESIUM 2.2 mg/dl (1.7-2.5); PHOSPHORUS 3.7 mg/dl (2.5-4.9); POTASSIUM 4.2 mmol/L (3.5-5.1); SODIUM 141 mmol/L (135-144); TOTAL PROTEIN 7.1 g/dl (6.1-8.1)
[2018-05-26] MEDS: MIRTAZAPINE 15 MG TAB PO (20:09)
[2018-05-26] MEDS: BUPROPION (SR) 100 MG TAB PO (20:09)
[2018-05-26] MEDS: QUETIAPINE 25 MG TAB PO (20:09)
[2018-05-26] MEDS: ATORVASTATIN 40 MG TAB PO (20:09)
[2018-05-26] MEDS: RIVAROXABAN 15 MG TABLET PO (20:09)
[2018-05-26] MEDS: METOPROLOL 50 MG TAB PO ×2 (20:10→21:59)
[2018-05-26] MEDS ORDERED: ARTIFICIAL TEARS 15 ML OPH BOTH EYES (20:30)
[2018-05-26] MEDS ORDERED: DILTIAZEM 60 MG TAB PO (21:00)
[2018-05-26 23:50] LABS: ADD UMIC YES; UR ASCORBIC ACID NEGATIVE (NEGATIVE); UR BACTERIA FEW /HPF (NONE SEEN); UR BILIRUBIN (Dip) NEGATIVE (NEGATIVE); UR BLOOD (Dip) NEGATIVE (NEGATIVE); UR CLARITY CLEAR (CLEAR); UR COLOR YELLOW (YELLOW); UR GLUCOSE (Dip) NEGATIVE (NEGATIVE); UR KETONES (Dip) NEGATIVE (NEGATIVE); UR LEUKOCYTE ESTERASE (Dip) 3+ Leu/ul (NEGATIVE); UR NITRITE (Dip) POSITIVE (NEGATIVE); UR RBC 0 /HPF (0-5); UR SPECIFIC GRAVITY (Dip) 1.009 (1.003-1.030); UR TOTAL PROTEIN (Dip) NEGATIVE (NEGATIVE); UR UROBILINOGEN (Dip) NEGATIVE (NEGATIVE); UR WBC 78 /HPF (0-5)
[2018-05-27 05:30] LABS: HEMATOCRIT 39.4 % (42.0-52.0); HEMOGLOBIN 12.4 g/dl (14.0-18.0)
[2018-05-27 05:42] LABS: HEMOGLOBIN A1C 5.4 % (0-5.9)
[2018-05-27] MEDS: LEVOTHYROXINE 100 MCG TAB PO (06:19)
[2018-05-27] MEDS: METOPROLOL 50 MG TAB PO ×3 (06:20→21:34)
[2018-05-27] MEDS: TIOTROPIUM 18 MCG CAPSULE INHA DEV INH (08:56)
[2018-05-27] MEDS: BUPROPION (SR) 100 MG TAB PO ×2 (08:57→20:37)
[2018-05-27] MEDS: LAMOTRIGINE 100 MG TAB PO (08:57)
[2018-05-27] MEDS: VENLAFAXINE 75 MG TABLET PO (08:57)
[2018-05-27] MEDS: FUROSEMIDE 20 MG INJ IV (10:56)
[2018-05-27] MEDS: FLUTICASONE/VILANTEROL 100-25 INH (12:29)
[2018-05-27] MEDS: LISINOPRIL 5 MG TAB PO ×2 (15:06→20:37)
[2018-05-27] MEDS: RIVAROXABAN 15 MG TABLET PO (17:26)
[2018-05-27] MEDS: MIRTAZAPINE 15 MG TAB PO (20:36)
[2018-05-27] MEDS: ATORVASTATIN 40 MG TAB PO (20:37)
[2018-05-27] MEDS: QUETIAPINE 25 MG TAB PO (20:37)
[2018-05-27] MEDS: BALSAM PERU/CASTOR OIL 60 GM TUBE TOP (20:37)
[2018-05-28 05:58] LABS: HEMATOCRIT 37.6 % (42.0-52.0); HEMOGLOBIN 11.8 g/dl (14.0-18.0)
[2018-05-28] MEDS: LEVOTHYROXINE 100 MCG TAB PO (06:10)
[2018-05-28] MEDS: METOPROLOL 50 MG TAB PO ×2 (06:11→21:14)
[2018-05-28 06:31] LABS: ALANINE AMINOTRANSFERASE 17 IU/L (13-69); ALBUMIN 3.3 g/dl (3.3-4.9); ALBUMIN/GLOBULIN RATIO 1.22; ALKALINE PHOSPHATASE 66 IU/L (42-121); ANION GAP 6 (5-13); ASPARTATE AMINO TRANSFERASE 20 IU/L (15-46); BILIRUBIN,INDIRECT 0.4 mg/dl (0-1.1); BILIRUBIN,TOTAL 0.4 mg/dl (0.2-1.3); BLOOD UREA NITROGEN 29 mg/dl (7-20); CALCIUM 9.6 mg/dl (8.4-10.2); CARBON DIOXIDE 31 mmol/L (21-31); CHLORIDE 108 mmol/L (97-110); GLUCOSE 99 mg/dl (70-220); POTASSIUM 4.6 mmol/L (3.5-5.1); SODIUM 145 mmol/L (135-144)
[2018-05-28] MEDS: FLUTICASONE/VILANTEROL 100-25 INH (08:15)
[2018-05-28] MEDS: TIOTROPIUM 18 MCG CAPSULE INHA DEV INH (08:15)
[2018-05-28] MEDS: LAMOTRIGINE 100 MG TAB PO (08:17)
[2018-05-28] MEDS: BUPROPION (SR) 100 MG TAB PO ×2 (08:17→21:13)
[2018-05-28] MEDS: VENLAFAXINE 75 MG TABLET PO (08:18)
[2018-05-28] MEDS: LISINOPRIL 5 MG TAB PO ×2 (08:19→12:07)
[2018-05-28] MEDS: BALSAM PERU/CASTOR OIL 60 GM TUBE TOP ×2 (08:20→21:14)
[2018-05-28] MEDS: RIVAROXABAN 15 MG TABLET PO (17:20)
[2018-05-28] MEDS ORDERED: CEPASTAT LOZENGE MT (18:00)
[2018-05-28] MEDS: QUETIAPINE 25 MG TAB PO (21:13)
[2018-05-28] MEDS: MIRTAZAPINE 15 MG TAB PO (21:13)
[2018-05-28] MEDS: ATORVASTATIN 40 MG TAB PO (21:13)
[2018-05-28] MEDS: LISINOPRIL 10 MG TAB PO (21:14)
[2018-05-29 05:54] LABS: ADD MAN DIFF? NO
[2018-05-29 06:04] LABS: WHITE BLOOD COUNT 8.6 10^3/ul (4.8-10.8)
[2018-05-29 06:04] LABS: BASOPHIL # 0.1 10^3/ul (0.0-0.1); BASOPHILS % 0.7 % (0.0-2.0); EOSINOPHILS # 0.3 10^3/ul (0.0-0.5); EOSINOPHILS % 3.4 % (0.0-7.0); HEMATOCRIT 38.3 % (42.0-52.0); LYMPHOCYTES # 1.6 10^3/ul (0.8-2.9); LYMPHOCYTES % 18.4 % (15.0-51.0); MEAN CORPUSCULAR HEMOGLOBIN 28.4 pg (29.0-33.0); MEAN CORPUSCULAR HGB CONC 31.3 g/dl (32.0-37.0); MEAN CORPUSCULAR VOLUME 90.8 fl (82.0-101.0); MEAN PLATELET VOLUME 11.5 fl (7.4-10.4); MONOCYTE # 1.1 10^3/ul (0.3-0.9); MONOCYTES % 12.3 % (0.0-11.0); NEUTROPHIL # 5.6 10^3/ul (1.6-7.5); NEUTROPHILS % 64.7 % (39.0-77.0); PLATELET COUNT 230 10^3/UL (140-415); RED BLOOD COUNT 4.22 10^6/ul (4.70-6.10); RED CELL DISTRIBUTION WIDTH 16.5 % (11.5-14.5)
[2018-05-29 06:22] LABS: ALANINE AMINOTRANSFERASE 23 IU/L (13-69); ALBUMIN/GLOBULIN RATIO 1.15; ALKALINE PHOSPHATASE 59 IU/L (42-121); ANION GAP 8 (5-13); ASPARTATE AMINO TRANSFERASE 23 IU/L (15-46); BILIRUBIN,INDIRECT 0.6 mg/dl (0-1.1); BILIRUBIN,TOTAL 0.6 mg/dl (0.2-1.3); BLOOD UREA NITROGEN 30 mg/dl (7-20); CALCIUM 9.5 mg/dl (8.4-10.2); CARBON DIOXIDE 27 mmol/L (21-31); CHLORIDE 109 mmol/L (97-110); CREATININE 1.13 mg/dl (0.61-1.24); GLUCOSE 89 mg/dl (70-220); POTASSIUM 4.5 mmol/L (3.5-5.1); SODIUM 144 mmol/L (135-144); TOTAL PROTEIN 5.6 g/dl (6.1-8.1)
[2018-05-29] MEDS: ALPRAZOLAM 0.25 MG TAB PO (06:35)
[2018-05-29] MEDS: LEVOTHYROXINE 100 MCG TAB PO (06:35)
[2018-05-29] MEDS: FLUTICASONE/VILANTEROL 100-25 INH (08:47)
[2018-05-29] MEDS: TIOTROPIUM 18 MCG CAPSULE INHA DEV INH (08:48)
[2018-05-29] MEDS: BUPROPION (SR) 100 MG TAB PO ×2 (08:48→22:29)
[2018-05-29] MEDS: METOPROLOL 50 MG TAB PO ×2 (08:49→22:30)
[2018-05-29] MEDS: VENLAFAXINE 75 MG TABLET PO (08:50)
[2018-05-29] MEDS: LISINOPRIL 10 MG TAB PO ×2 (08:51→22:30)
[2018-05-29] MEDS: LAMOTRIGINE 100 MG TAB PO (08:51)
[2018-05-29] MEDS: BALSAM PERU/CASTOR OIL 60 GM TUBE TOP ×2 (08:53→21:00)
[2018-05-29] MEDS: AMLODIPINE 2.5 MG TAB PO ×2 (11:56→22:30)
[2018-05-29] MEDS: RIVAROXABAN 15 MG TABLET PO (17:31)
[2018-05-29] MEDS: ATORVASTATIN 40 MG TAB PO (22:29)
[2018-05-29] MEDS: QUETIAPINE 25 MG TAB PO (22:30)
[2018-05-29] MEDS: MIRTAZAPINE 15 MG TAB PO (22:32)
[2018-05-30] MEDS: LEVOTHYROXINE 100 MCG TAB PO (07:18)
[2018-05-30] MEDS: FLUTICASONE/VILANTEROL 100-25 INH (08:18)
[2018-05-30] MEDS: VENLAFAXINE 75 MG TABLET PO (08:18)
[2018-05-30] MEDS: LAMOTRIGINE 100 MG TAB PO (08:18)
[2018-05-30] MEDS: BUPROPION (SR) 100 MG TAB PO (08:18)
[2018-05-30] MEDS: AMLODIPINE 2.5 MG TAB PO (08:19)
[2018-05-30] MEDS: METOPROLOL 50 MG TAB PO (08:19)
[2018-05-30] MEDS: BALSAM PERU/CASTOR OIL 60 GM TUBE TOP (08:20)
[2018-05-30] MEDS: TIOTROPIUM 18 MCG CAPSULE INHA DEV INH (08:23)
[2018-05-30] MEDS: LISINOPRIL 10 MG TAB PO (08:24)
== END 2018-05-30 16:35 | DRG 314 ==
LOC: 6WM 15:06
DX: I95.9 Hypotension, unspecified (principal); I50.33 Acute on chronic diastolic (congestive) heart failure; I48.1 Persistent atrial fibrillation; N39.0 Urinary tract infection, site not specified; I11.0 Hypertensive heart disease with heart failure; I25.10 Atherosclerotic heart disease of native coronary artery without angina pectoris; F31.9 Bipolar disorder, unspecified; R26.81 Unsteadiness on feet; Z79.01 Long term (current) use of anticoagulants
CPT/HCPCS: 71045; 80053; 81001; 83036; 83735; 84100; 84443; 85014; 85018; 85025; 87086; 93005; 93306; 93970; 97116; 97161; 97530

== ENCOUNTER → 2018-11-04 | Outpatient (CLI) | payer MEDICARE, BC | END | disposition home or self-care (01) | LOC: VAS 15:28 | DX: R22.43 Localized swelling, mass and lump, lower limb, bilateral (principal); M79.662 Pain in left lower leg; M79.661 Pain in right lower leg | CPT/HCPCS: 93970 ==

== ENCOUNTER 2018-11-23 16:30 | Inpatient (IN) | payer MEDICARE, BC ==
[2018-11-23] MEDS ORDERED: NACL 0.9% 3 ML SYG IV (17:30)
[2018-11-23] MEDS: RIVAROXABAN 15 MG TABLET PO (18:34)
[2018-11-23] MEDS: FUROSEMIDE 40 MG INJ IV (18:35)
[2018-11-23 19:06] LABS: ADD MAN DIFF? NO
[2018-11-23 19:07] LABS: WHITE BLOOD COUNT 9.4 10^3/ul (4.8-10.8)
[2018-11-23 19:07] LABS: BASOPHIL # 0.1 10^3/ul (0.0-0.1); BASOPHILS % 0.5 % (0.0-2.0); EOSINOPHILS # 0.4 10^3/ul (0.0-0.5); HEMATOCRIT 31.3 % (42.0-52.0); HEMOGLOBIN 9.8 g/dl (14.0-18.0); LYMPHOCYTES # 1.4 10^3/ul (0.8-2.9); LYMPHOCYTES % 15.3 % (15.0-51.0); MEAN CORPUSCULAR HEMOGLOBIN 28.9 pg (29.0-33.0); MEAN CORPUSCULAR HGB CONC 31.3 g/dl (32.0-37.0); MEAN CORPUSCULAR VOLUME 92.3 fl (82.0-101.0); MEAN PLATELET VOLUME 10.8 fl (7.4-10.4); MONOCYTE # 1.1 10^3/ul (0.3-0.9); MONOCYTES % 11.5 % (0.0-11.0); NEUTROPHIL # 6.4 10^3/ul (1.6-7.5); PLATELET COUNT 295 10^3/UL (140-415); RED BLOOD COUNT 3.39 10^6/ul (4.70-6.10)
[2018-11-23 19:28] LABS: ALANINE AMINOTRANSFERASE 19 IU/L (13-69); ALBUMIN 3.8 g/dl (3.3-4.9); ALBUMIN/GLOBULIN RATIO 1.22; ALKALINE PHOSPHATASE 86 IU/L (42-121); ANION GAP 8 (5-13); ASPARTATE AMINO TRANSFERASE 22 IU/L (15-46); BILIRUBIN,INDIRECT 0.3 mg/dl (0-1.1); BILIRUBIN,TOTAL 0.3 mg/dl (0.2-1.3); BLOOD UREA NITROGEN 29 mg/dl (7-20); CALCIUM 9.2 mg/dl (8.4-10.2); CARBON DIOXIDE 29 mmol/L (21-31); CHLORIDE 99 mmol/L (97-110); CREATININE 1.63 mg/dl (0.61-1.24); GLUCOSE 93 mg/dl (70-220); MAGNESIUM 2.2 mg/dl (1.7-2.5); POTASSIUM 3.6 mmol/L (3.5-5.1); SODIUM 136 mmol/L (135-144); TOTAL PROTEIN 6.9 g/dl (6.1-8.1)
[2018-11-23 19:37] LABS: B-TYPE NATRIURETIC PEPTIDE 3870 PG/ML (0-450)
[2018-11-23] MEDS ORDERED: METOPROLOL 50 MG TAB PO (21:00)
[2018-11-23] MEDS: BUPROPION (SR) 100 MG TAB PO (21:13)
[2018-11-23] MEDS: MIRTAZAPINE 15 MG TAB PO (21:13)
[2018-11-23] MEDS: ATORVASTATIN 40 MG TAB PO (21:13)
[2018-11-23] MEDS: METOPROLOL 50 MG TAB PO (21:14)
[2018-11-24 01:05] LABS: ADD UMIC NO; UR ASCORBIC ACID NEGATIVE (NEGATIVE); UR BILIRUBIN (Dip) NEGATIVE (NEGATIVE); UR BLOOD (Dip) NEGATIVE (NEGATIVE); UR CLARITY CLEAR (CLEAR); UR COLOR COLORLESS (YELLOW); UR GLUCOSE (Dip) NEGATIVE (NEGATIVE); UR KETONES (Dip) NEGATIVE (NEGATIVE); UR LEUKOCYTE ESTERASE (Dip) NEGATIVE Leu/ul (NEGATIVE); UR NITRITE (Dip) NEGATIVE (NEGATIVE); UR SPECIFIC GRAVITY (Dip) 1.005 (1.003-1.030); UR TOTAL PROTEIN (Dip) NEGATIVE (NEGATIVE); UR UROBILINOGEN (Dip) NEGATIVE (NEGATIVE)
[2018-11-24] MEDS: LEVOTHYROXINE 100 MCG TAB PO (06:10)
[2018-11-24] MEDS: FUROSEMIDE 40 MG INJ IV ×2 (06:10→17:24)
[2018-11-24 07:03] LABS: HEMOGLOBIN A1C 5.7 % (0-5.9)
[2018-11-24 08:10] LABS: B-TYPE NATRIURETIC PEPTIDE 3680 PG/ML (0-450)
[2018-11-24] MEDS: FLUTICASONE/VILANTEROL 100-25 INH ×2 (09:00→10:54)
[2018-11-24] MEDS: METOPROLOL 50 MG TAB PO ×2 (09:28→22:20)
[2018-11-24] MEDS: LAMOTRIGINE 100 MG TAB PO (09:28)
[2018-11-24] MEDS: BUPROPION (SR) 100 MG TAB PO ×2 (09:37→22:20)
[2018-11-24] MEDS: RIVAROXABAN 15 MG TABLET PO (16:50)
[2018-11-24] MEDS: MIRTAZAPINE 15 MG TAB PO (22:19)
[2018-11-24] MEDS: TAMSULOSIN (SR) 0.4 MG CAP PO (22:19)
[2018-11-24] MEDS: ATORVASTATIN 40 MG TAB PO (22:20)
[2018-11-25] MEDS: LEVOTHYROXINE 100 MCG TAB PO (06:11)
[2018-11-25 06:18] LABS: ADD MAN DIFF? NO
[2018-11-25 06:43] LABS: WHITE BLOOD COUNT 9.4 10^3/ul (4.8-10.8)
[2018-11-25 06:44] LABS: BASOPHIL # 0.1 10^3/ul (0.0-0.1); BASOPHILS % 0.6 % (0.0-2.0); EOSINOPHILS # 0.4 10^3/ul (0.0-0.5); EOSINOPHILS % 3.9 % (0.0-7.0); HEMATOCRIT 31.4 % (42.0-52.0); HEMOGLOBIN 9.7 g/dl (14.0-18.0); LYMPHOCYTES # 1.5 10^3/ul (0.8-2.9); LYMPHOCYTES % 16.4 % (15.0-51.0); MEAN CORPUSCULAR HEMOGLOBIN 28.5 pg (29.0-33.0); MEAN CORPUSCULAR HGB CONC 30.9 g/dl (32.0-37.0); MEAN CORPUSCULAR VOLUME 92.4 fl (82.0-101.0); MEAN PLATELET VOLUME 11.4 fl (7.4-10.4); MONOCYTE # 1.2 10^3/ul (0.3-0.9); MONOCYTES % 12.6 % (0.0-11.0); NEUTROPHIL # 6.2 10^3/ul (1.6-7.5); NEUTROPHILS % 65.8 % (39.0-77.0); PLATELET COUNT 309 10^3/UL (140-415); RED CELL DISTRIBUTION WIDTH 16.9 % (11.5-14.5)
[2018-11-25 06:46] LABS: IRON 34 ug/dl (35-150)
[2018-11-25 06:48] LABS: HDL CHOLESTEROL 32 mg/dl (31-75); LDL CHOLESTEROL,CALCULATED 59 mg/dl; TRIGLYCERIDES 35 mg/dl (0-149)
[2018-11-25 06:48] LABS: CHOLESTEROL 98 mg/dl (100-200)
[2018-11-25 06:56] LABS: % IRON SATURATION 11 % SAT (22-52); B-TYPE NATRIURETIC PEPTIDE 2300 PG/ML (0-450); TOTAL IRON BINDING CAPACITY 299 ug/dl (241-421)
[2018-11-25 07:13] LABS: ALANINE AMINOTRANSFERASE 22 IU/L (13-69); ALBUMIN 3.1 g/dl (3.3-4.9); ALKALINE PHOSPHATASE 73 IU/L (42-121); ANION GAP 6 (5-13); ASPARTATE AMINO TRANSFERASE 20 IU/L (15-46); BILIRUBIN,INDIRECT 0.5 mg/dl (0-1.1); BILIRUBIN,TOTAL 0.5 mg/dl (0.2-1.3); BLOOD UREA NITROGEN 38 mg/dl (7-20); CALCIUM 9.1 mg/dl (8.4-10.2); CARBON DIOXIDE 31 mmol/L (21-31); CHLORIDE 104 mmol/L (97-110); CREATININE 1.58 mg/dl (0.61-1.24); GLUCOSE 104 mg/dl (70-220); POTASSIUM 4.2 mmol/L (3.5-5.1); SODIUM 141 mmol/L (135-144); TOTAL PROTEIN 6.2 g/dl (6.1-8.1)
[2018-11-25 07:44] LABS: FERRITIN 61.2 ng/ml (11.1-264.0)
[2018-11-25] MEDS: FLUTICASONE/VILANTEROL 100-25 INH (09:00)
[2018-11-25] MEDS: LAMOTRIGINE 100 MG TAB PO (09:55)
[2018-11-25] MEDS: SPIRONOLACTONE 25 MG TAB PO (09:55)
[2018-11-25] MEDS: BUPROPION (SR) 100 MG TAB PO ×2 (09:55→20:05)
[2018-11-25] MEDS: METOPROLOL 50 MG TAB PO ×2 (09:56→20:06)
[2018-11-25] MEDS: FUROSEMIDE 40 MG INJ IV ×2 (09:56→21:54)
[2018-11-25] MEDS: RIVAROXABAN 15 MG TABLET PO (17:17)
[2018-11-25] MEDS: ATORVASTATIN 40 MG TAB PO (20:05)
[2018-11-25] MEDS: TAMSULOSIN (SR) 0.4 MG CAP PO (20:05)
[2018-11-25] MEDS: MIRTAZAPINE 15 MG TAB PO (20:06)
[2018-11-25] MEDS: CEFAZOLIN 1 GM/50 ML (PMX) 50 ML IVPB (21:54)
[2018-11-25] MEDS ORDERED: CEFAZOLIN 1 GM INJ IM (22:00)
[2018-11-26] MEDS: ALPRAZOLAM 0.25 MG TAB PO (00:40)
[2018-11-26] MEDS: CEFAZOLIN 1 GM/50 ML (PMX) 50 ML IVPB ×3 (06:13→21:56)
[2018-11-26] MEDS: LEVOTHYROXINE 100 MCG TAB PO (06:13)
[2018-11-26 06:42] LABS: B-TYPE NATRIURETIC PEPTIDE 1730 PG/ML (0-450)
[2018-11-26 06:49] LABS: ALANINE AMINOTRANSFERASE 18 IU/L (13-69); ALBUMIN/GLOBULIN RATIO 0.93; ALKALINE PHOSPHATASE 70 IU/L (42-121); ANION GAP 5 (5-13); ASPARTATE AMINO TRANSFERASE 20 IU/L (15-46); BILIRUBIN,INDIRECT 0.4 mg/dl (0-1.1); BILIRUBIN,TOTAL 0.4 mg/dl (0.2-1.3); BLOOD UREA NITROGEN 38 mg/dl (7-20); CALCIUM 8.9 mg/dl (8.4-10.2); CARBON DIOXIDE 33 mmol/L (21-31); CHLORIDE 104 mmol/L (97-110); CREATININE 1.54 mg/dl (0.61-1.24); GLUCOSE 111 mg/dl (70-220); MAGNESIUM 2.4 mg/dl (1.7-2.5); POTASSIUM 3.9 mmol/L (3.5-5.1); SODIUM 142 mmol/L (135-144); TOTAL PROTEIN 6.2 g/dl (6.1-8.1)
[2018-11-26] MEDS: FLUTICASONE/VILANTEROL 100-25 INH (09:00)
[2018-11-26] MEDS: SPIRONOLACTONE 25 MG TAB PO (09:39)
[2018-11-26] MEDS: LAMOTRIGINE 100 MG TAB PO (09:39)
[2018-11-26] MEDS: METOPROLOL 50 MG TAB PO ×2 (09:40→21:58)
[2018-11-26] MEDS: BUPROPION (SR) 100 MG TAB PO ×2 (10:54→21:57)
[2018-11-26] MEDS: SOD FERRIC GLUC COMPLX 125 MG in SOD CHLORIDE 0.9% 100 ML IVPB (14:12)
[2018-11-26] MEDS: RIVAROXABAN 15 MG TABLET PO (18:18)
[2018-11-26] MEDS: TAMSULOSIN (SR) 0.4 MG CAP PO (21:57)
[2018-11-26] MEDS: FUROSEMIDE 40 MG INJ IV (21:57)
[2018-11-26] MEDS: MIRTAZAPINE 15 MG TAB PO (21:58)
[2018-11-26] MEDS: ATORVASTATIN 40 MG TAB PO (21:58)
[2018-11-27] MEDS: CEFAZOLIN 1 GM/50 ML (PMX) 50 ML IVPB (06:02)
[2018-11-27] MEDS: LEVOTHYROXINE 100 MCG TAB PO (06:02)
[2018-11-27] MEDS: FUROSEMIDE 40 MG INJ IV ×2 (06:02→17:44)
[2018-11-27 06:48] LABS: B-TYPE NATRIURETIC PEPTIDE 1670 PG/ML (0-450)
[2018-11-27 07:09] LABS: ALANINE AMINOTRANSFERASE 21 IU/L (13-69); ALBUMIN/GLOBULIN RATIO 1.07; ALKALINE PHOSPHATASE 63 IU/L (42-121); ANION GAP 7 (5-13); ASPARTATE AMINO TRANSFERASE 19 IU/L (15-46); BILIRUBIN,INDIRECT 0.4 mg/dl (0-1.1); BILIRUBIN,TOTAL 0.4 mg/dl (0.2-1.3); BLOOD UREA NITROGEN 46 mg/dl (7-20); CARBON DIOXIDE 30 mmol/L (21-31); CHLORIDE 105 mmol/L (97-110); CREATININE 1.58 mg/dl (0.61-1.24); GLUCOSE 98 mg/dl (70-220); MAGNESIUM 2.3 mg/dl (1.7-2.5); POTASSIUM 4.2 mmol/L (3.5-5.1); SODIUM 142 mmol/L (135-144); TOTAL PROTEIN 5.8 g/dl (6.1-8.1)
[2018-11-27] MEDS: FLUTICASONE/VILANTEROL 100-25 INH (08:46)
[2018-11-27] MEDS: SPIRONOLACTONE 25 MG TAB PO (08:47)
[2018-11-27] MEDS: BUPROPION (SR) 100 MG TAB PO ×2 (08:47→21:01)
[2018-11-27] MEDS: LAMOTRIGINE 100 MG TAB PO (08:47)
[2018-11-27] MEDS: METOPROLOL 50 MG TAB PO ×2 (08:48→21:02)
[2018-11-27] MEDS ORDERED: VANCOMYCIN IV PER PHARMACY XX (10:00)
[2018-11-27] MEDS: SOD FERRIC GLUC COMPLX 125 MG in SOD CHLORIDE 0.9% 100 ML IVPB (13:15)
[2018-11-27] MEDS: VANCOMYCIN HCL 1.75 GM in SOD CHLORIDE 0.9% 500 ML IVPB (13:33)
[2018-11-27] MEDS: RIVAROXABAN 15 MG TABLET PO (17:43)
[2018-11-27] MEDS: ATORVASTATIN 40 MG TAB PO (21:01)
[2018-11-27] MEDS: TAMSULOSIN (SR) 0.4 MG CAP PO (21:01)
[2018-11-27] MEDS: MIRTAZAPINE 15 MG TAB PO (21:01)
[2018-11-27] MEDS: ALPRAZOLAM 0.25 MG TAB PO (23:53)
[2018-11-27] MEDS: ACETAMINOPHEN 325 MG TAB PO (23:54)
[2018-11-28] MEDS: LEVOTHYROXINE 100 MCG TAB PO (06:14)
[2018-11-28] MEDS: FUROSEMIDE 40 MG INJ IV ×2 (06:14→18:07)
[2018-11-28 06:45] LABS: CREATININE 1.36 mg/dl (0.61-1.24)
[2018-11-28 06:45] LABS: BLOOD UREA NITROGEN 39 mg/dl (7-20)
[2018-11-28] MEDS: LAMOTRIGINE 100 MG TAB PO (08:44)
[2018-11-28] MEDS: BUPROPION (SR) 100 MG TAB PO ×2 (08:44→20:23)
[2018-11-28] MEDS: SPIRONOLACTONE 25 MG TAB PO (08:44)
[2018-11-28] MEDS: METOPROLOL 50 MG TAB PO ×2 (08:44→20:24)
[2018-11-28] MEDS: FLUTICASONE/VILANTEROL 100-25 INH (08:45)
[2018-11-28] MEDS: SOD FERRIC GLUC COMPLX 125 MG in SOD CHLORIDE 0.9% 100 ML IVPB (12:25)
[2018-11-28] MEDS: VANCOMYCIN 1.25 GM/NS 250 ML 250 ML IVPB (13:58)
[2018-11-28] MEDS: RIVAROXABAN 15 MG TABLET PO (18:06)
[2018-11-28] MEDS: TAMSULOSIN (SR) 0.4 MG CAP PO (20:22)
[2018-11-28] MEDS: MIRTAZAPINE 15 MG TAB PO (20:23)
[2018-11-28] MEDS: ATORVASTATIN 40 MG TAB PO (20:23)
[2018-11-28] MEDS: ALPRAZOLAM 0.25 MG TAB PO (23:47)
[2018-11-29 05:46] LABS: ADD MAN DIFF? NO
[2018-11-29 05:50] LABS: WHITE BLOOD COUNT 9.6 10^3/ul (4.8-10.8)
[2018-11-29 05:50] LABS: BASOPHILS % 0.3 % (0.0-2.0); EOSINOPHILS # 0.4 10^3/ul (0.0-0.5); EOSINOPHILS % 4.3 % (0.0-7.0); LYMPHOCYTES # 1.4 10^3/ul (0.8-2.9); LYMPHOCYTES % 14.6 % (15.0-51.0); MEAN CORPUSCULAR HEMOGLOBIN 28.4 pg (29.0-33.0); MEAN CORPUSCULAR VOLUME 91.5 fl (82.0-101.0); MEAN PLATELET VOLUME 11.1 fl (7.4-10.4); MONOCYTE # 1.2 10^3/ul (0.3-0.9); MONOCYTES % 12.2 % (0.0-11.0); NEUTROPHIL # 6.5 10^3/ul (1.6-7.5); NEUTROPHILS % 67.6 % (39.0-77.0); PLATELET COUNT 299 10^3/UL (140-415); RED BLOOD COUNT 3.17 10^6/ul (4.70-6.10); RED CELL DISTRIBUTION WIDTH 17.2 % (11.5-14.5)
[2018-11-29] MEDS: FUROSEMIDE 40 MG INJ IV (05:55)
[2018-11-29] MEDS: ACETAMINOPHEN 325 MG TAB PO (06:40)
[2018-11-29] MEDS: LEVOTHYROXINE 100 MCG TAB PO (07:16)
[2018-11-29 07:20] LABS: ANION GAP 5 (5-13); BLOOD UREA NITROGEN 36 mg/dl (7-20); CALCIUM 9.1 mg/dl (8.4-10.2); CARBON DIOXIDE 31 mmol/L (21-31); CHLORIDE 105 mmol/L (97-110); CREATININE 1.46 mg/dl (0.61-1.24); GLUCOSE 92 mg/dl (70-220); MAGNESIUM 2.1 mg/dl (1.7-2.5); PHOSPHORUS 3.4 mg/dl (2.5-4.9); SODIUM 141 mmol/L (135-144)
[2018-11-29] MEDS: BUPROPION (SR) 100 MG TAB PO (08:25)
[2018-11-29] MEDS: FLUTICASONE/VILANTEROL 100-25 INH (08:25)
[2018-11-29] MEDS: SPIRONOLACTONE 25 MG TAB PO (08:26)
[2018-11-29] MEDS: METOPROLOL 50 MG TAB PO (08:26)
[2018-11-29] MEDS: LAMOTRIGINE 100 MG TAB PO (08:26)
[2018-11-29] MEDS: VANCOMYCIN 1.25 GM/NS 250 ML 250 ML IVPB (12:36)
== END 2018-11-29 13:45 | disposition home or self-care (01) | DRG 291 ==
LOC: 6WM 16:30
DX: I13.0 Hypertensive heart and chronic kidney disease with heart failure and stage 1 through stage 4 chronic kidney disease, or unspecified chronic kidney disease (principal); I50.33 Acute on chronic diastolic (congestive) heart failure; N17.9 Acute kidney failure, unspecified; L03.116 Cellulitis of left lower limb; L03.115 Cellulitis of right lower limb; I48.2 Chronic atrial fibrillation; F31.9 Bipolar disorder, unspecified; I25.10 Atherosclerotic heart disease of native coronary artery without angina pectoris; N40.0 Benign prostatic hyperplasia without lower urinary tract symptoms; R29.6 Repeated falls; E78.5 Hyperlipidemia, unspecified; E03.9 Hypothyroidism, unspecified; N18.3 Chronic kidney disease, stage 3 (moderate); D63.1 Anemia in chronic kidney disease; J44.9 Chronic obstructive pulmonary disease, unspecified; Z95.5 Presence of coronary angioplasty implant and graft; Z87.891 Personal history of nicotine dependence; I25.2 Old myocardial infarction
CPT/HCPCS: 71045; 80048; 80053; 80061; 81003; 82565; 82728; 83036; 83540; 83735; 83880; 84100; 84520; 85025; 93005; 93306; 97116; 97161; 97530; 99217